=== PATIENT | male | born 1955 | race Caucasian/White ===

== ENCOUNTER 2018-09-02 18:12 | Emergency (ER) | payer OTHER ==
--- OUTSIDE RECORDS SUMMARY | 2018-09-02 18:14 | XMS REPORT ---
:1955 Author Organization [facility] Address [address] [place] [address] Dr. Bustamante. [address] [place] [id number] Care Team Providers Name Role Phone DR SU HERNANDEZ Unavailable Unavailable Problems This patient has no known problems. Allergies, Adverse Reactions, Alerts This patient has no known allergies or adverse reactions. Medications This patient has no known medications. Encounters Start End Encounter Admission Attending Care Care Encounter Date/Time Date/Time Type Type Clinicians Facility Department ID 2017-10-22 2017-10-22 [place] [facility] [id number]:00:00 07:00:00 SU
[2018-09-02] MEDS ORDERED: NA CHLORIDE 0.9% 1,000 ML ONE (18:59)
[2018-09-02] MEDS ORDERED: MORPHINE 4 MG/ML SYR ONE (18:59)
[2018-09-02] MEDS ORDERED: ONDANSETRON 4 MG/2 ML VIAL ONE (18:59)
[2018-09-02 19:01] LABS: Absolute Lymphocytes (CBC) 2.8 K/uL (0.7-4.9); Basophils % 0.8 % (0-1.3); Eosinophils % 3.1 % (0-4.4); Hematocrit 41.1 % (39.6-49.0); Lymphocytes % 40.4 % (15.3-44.8); MPV 8.4 fL (7.6-11.3); Monocytes % 8.1 % (3.3-12.3); RBC Red Blood Cell Count 4.49 M/uL (4.33-5.43)
[2018-09-02 19:15] LABS: Potassium 3.8 mmol/L (3.5-5.1)
--- NOTE | 2018-09-02 19:56 | RAD REPORT ---
EXAM DESCRIPTION: CTAbdomen Pelvis W Contrast - 09/02/2018 7:49 pm CLINICAL HISTORY: Abdominal pain. ABD PAIN COMPARISON: Abdomen Pelvis W Contrast dated 07/14/2018; Abdomen Pelvis W Contrast dated 08/24/2017 ; Abdomen Pelvis W Contrast dated 11/15/2015; CT ABD PELVIS W CONTRAST dated 12/21/2013 TECHNIQUE: Biphasic CT imaging of the abdomen and pelvis was performed with 100 ml non-ionic IV cont rast. All CT scans are performed using dose optimization technique as appropriate and may include automated exposure control or mA/KV adjustment according to patient size. FINDINGS: The lung bases are clear. The liver, spleen, pancreas, adrenal glands and kidneys are within normal limits. Benign bilateral re nal cysts. No bowel obstruction, free air, free fluid or abscess. Mild sigmoid diverticulosis is present without diverticulitis. Prominent fecal retention in the colon. The appendix is normal. No evidence of sign ificant lymphadenopathy. No suspicious bony findings. Small bilateral fat containing inguinal hernias. Evidence of previous ri ght inguinal hernia repair. IMPRESSION: No acute intra-abdominal or pelvic finding. Mild fecal retention.
--- NOTE | 2018-09-02 20:05 | EDPHYS ---
Physician Documentation [facility] Name: Matt Robles Age: 62 yrs Sex: Male : 1955 Arrival Date: 09/02/2018 Time: 18:15 Bed 20 Private MD: Zachary Archer E ED Physician Gadiel Lemos HPI: 09/02 18:49 This 62 yrs old Male presents to ER via Ambulatory with complaints of Groin kb Pain, Abdominal Pain, Nausea. 18:49 The patient presents with abdominal pain in the lower abdomen. Onset: The kb symptoms/episode began/occurred this morning. The symptoms do not radiate. Associated signs and symptoms: Pertinent positives: diarrhea, nausea. The symptoms are described as waxing/waning. Modifying factors: The symptoms are alleviated by nothing, the symptoms are aggravated by nothing. Severity of pain: At its worst the pain was moderate in the emergency department the pain has improved. The patient has experienced similar episodes in the past. The patient has been recently seen by a physician:. Pt reports he is being tested for crohn's. States he gets this lower abd pain and diarrhea, which they have called a crohn's flare-up. Told to start antibiotics when this happens so he started cipro and flagyl on Wednesday. Was seen by Dr Latahm yesterday and told to continue antibiotics. States the pain normally gets better throughout the day when he has it, but today it didn't so that is why he came in. . Historical: - Allergies: 18:28 No Known Allergies; aj1 - Home Meds: 18:28 amitriptyline-chlordiazepoxide 25-10 mg oral tab 1 tab in the evening [Active]; aj1 amlodipine 10 mg tab 1 tab once daily [Active]; metoprolol succinate 50 mg oral Tb24 1 tab once daily [Active]; esomeprazole magnesium 40 mg oral cpDR 1 cap 2 times per day [Active]; Multiple Vitamins oral tab daily [Active]; fenofibrate 150 mg oral cap 1 cap once daily [Active]; alprazolam 0.5 mg Oral Tb24 1 tab as needed [Active]; Fish Oil oral oral daily [Active]; mesalamine oral 1.2 GM oral 2 caps 2 times per day [Active]; cranberry oral oral twice a day [Active]; ranitidine HCl 150 mg Oral tab 1 tab once daily [Active]; Miralax 17 gram Oral pwpk 1 packet as needed [Active]; - PMHx: 18:28 Hernia; Hypertension; GERD; aj1 - PSHx: 18:28 Hernia repair; prostate surgery; aj1 - Immunization history:: Flu vaccine is up to date. - Social history:: Smoking status: Patient/guardian denies using tobacco. - Ebola Screening: : Patient denies travel to an Ebola-affected area in the 21 days before illness onset. ROS: 18:46 Constitutional: Negative for fever, chills, and weight loss, Neck: Negative for injury, kb pain, and swelling, Cardiovascular: Negative for chest pain, palpitations, and edema, Respiratory: Negative for shortness of breath, cough, wheezing, and pleuritic chest pain, Back: Negative for injury and pain, : Negative for injury, bleeding, discharge, and swelling, MS/Extremity: Negative for injury and deformity, Skin: Negative for injury, rash, and discoloration, Neuro: Negative for headache, weakness, numbness, tingling, and seizure. 18:46 Abdomen/GI: Positive for abdominal pain, nausea, diarrhea, Negative for vomiting, constipation, abdominal cramps, abdominal distension, anorexia. Exam: 18:46 Constitutional: This is a well developed, well nourished patient who is awake, alert, kb and in no acute distress. Head/Face: Normocephalic, atraumatic. Neck: Trachea midline, no thyromegaly or masses palpated, and no cervical lymphadenopathy. Supple, full range of motion without nuchal rigidity, or vertebral point tenderness. No Meningismus. Chest/axilla: Normal chest wall appearance and motion. Nontender with no deformity. No lesions are appreciated. Cardiovascular: Regular rate and rhythm with a normal S1 and S2. No gallops, murmurs, or rubs. Normal PMI, no JVD. No pulse deficits. Respiratory: Lungs have equal breath sounds bilaterally, clear to auscultation and percussion. No rales, rhonchi or wheezes noted. No increased work of breathing, no retractions or nasal flaring. Abdomen/GI: Soft, non-tender, with normal bowel sounds. No distension or tympany. No guarding or rebound. No evidence of tenderness throughout. Skin: Warm, dry with normal turgor. Normal color with no rashes, no lesions, and no evidence of cellulitis. MS/ Extremity: Pulses equal, no cyanosis. Neurovascular intact. Full, normal range of motion. Neuro: Awake and alert, GCS 15, oriented to person, place, time, and situation. Cranial nerves II-XII grossly intact. Motor strength 5/5 in all extremities. Sensory grossly intact. Cerebellar exam normal. Normal gait. Vital Signs: 18:28 BP 158 / 83; Pulse 79; Resp 18; Temp 98.0; Pulse Ox 98% on R/A; Weight 102.06 kg (R); aj1 Height 6 ft. 4 in. (193.04 cm) (R); Pain 3/10; 19:30 BP 141 / 75; Pulse 70; Resp 16; Temp 97.6; Pulse Ox 98% ; rr5 20:20 BP 122 / 70; Pulse 75; Resp 17; Temp 97.5; Pulse Ox 99% on R/A; rr5 18:28 Body Mass Index 27.39 (102.06 kg, 193.04 cm) aj1 MDM: 18:31 Patient medically screened. kb 18:48 Data reviewed: vital signs, nurses notes. Data interpreted: Pulse oximetry: on room air kb is 98 %. Interpretation: normal. 20:04 Counseling: I had a detailed discussion with the patient and/or guardian regarding: the kb historical points, exam findings, and any diagnostic results supporting the discharge/admit diagnosis, lab results, radiology results, the need for outpatient follow up, a family practitioner, to return to the emergency department if symptoms worsen or persist or if there are any questions or concerns that arise at home. ED course: Pt feeling better after treatment. Will follow up with Dr Latham. 09/02 18:40 Order name: CBC with Diff; Complete Time: 19:12 kb 09/02 18:40 Order name: Basic Metabolic Panel; Complete Time: 19:22 kb 09/02 18:40 Order name: CT Abd/Pelvis - IV Contrast Only; Complete Time: 19:58 kb 09/02 18:40 Order name: IV Start; Complete Time: 18:56 kb Administered Medications: 18:53 Drug: Zofran 4 mg Route: IVP; Site: right antecubital; tw2 20:00 Follow up: Response: No adverse reaction rr5 18:55 Drug: morphine 4 mg Route: IVP; Site: right antecubital; tw2 20:00 Follow up: Response: No adverse reaction rr5 18:56 Drug: NS 0.9% 1000 ml Route: IV; Rate: 1000 ml; Site: right antecubital; tw2 20:00 Follow up: Response: No adverse reaction; IV Status: Completed infusion; IV Intake: rr5 1000ml Disposition: 09/03 17:58 Co-signature as Attending Physician, Gadiel Lemos MD. Disposition: 09/02/18 20:05 Discharged to Home. Impression: Lower abdominal pain, unspecified. - Condition is Stable. - Discharge Instructions: Abdominal Pain, Adult, [id number]. - Prescriptions for Bentyl 20 mg Oral Tablet - take 1 tablet by ORAL route every 6 hours As needed; 20 tablet. Zofran 4 mg Oral Tablet - take 1 tablet by ORAL route every 6 hours As needed; 20 tablet. - Medication Reconciliation Form, Thank You Letter, Antibiotic Education, Prescription Opioid Use form. - Follow up: Emergency Department; When: As needed; Reason: Worsening of condition. Follow up: Private Physician; When: 2 - 3 days; Reason: Recheck today's complaints, Continuance of care, Re-evaluation by your physician. Signatures: Dispatcher [employer] EDJosefina Israel, CONNIE SMITHP-Kaley Carpenter, RN RN aj1 Autumn Garcia RN RN tw2 Gadiel Lemos MD MD Evan Humphrey RN RN rr5 Corrections: (The following items were deleted from the chart) 09/02 20:35 20:05 09/02/2018 20:05 Discharged to Home. Impression: Lower abdominal pain, rr5 unspecified. Condition is Stable. Forms are Medication Reconciliation Form, Thank You Letter, Antibiotic Education, Prescription Opioid Use. Follow up: Emergency Department; When: As needed; Reason: Worsening of condition. Follow up: Private Physician; When: 2 - 3 days; Reason: Recheck today's complaints, Continuance of care, Re-evaluation by your physician. kb
--- NOTE | 2018-09-02 20:05 | ER ---
Nurse's Notes [facility] Name: Matt Robles Age: 62 yrs Sex: Male : 1955 Arrival Date: 09/02/2018 Time: 18:15 Bed 20 Private MD: Zachary Archer E Diagnosis: Lower abdominal pain, unspecified Presentation: 09/02 18:21 Presenting complaint: Patient states: "I woke up this morning with low abdominal pain aj1 below the navel and in the groin. Through out the day the pain has remained constant. I've been nauseous, and feeling light headed I've had several bowel movements" Patient reports a history of inguinal hernia that has been suspected to cause him pain in the same area, he has also been seeing Dr. Alexis who is trying to figure out if he has Crohns disease. Today is the worst he has felt so he came to the ER for evaluation. Transition of care: patient was not received from another setting of care. Onset of symptoms was September 02, 2018. Risk Assessment: Do you want to hurt yourself or someone else? Patient reports no desire to harm self or others. Initial Sepsis Screen: Does the patient meet any 2 criteria? No. Patient's initial sepsis screen is negative. Does the patient have a suspected source of infection? Yes: Acute abdominal pain. Care prior to arrival: None. 18:21 Method Of Arrival: Ambulatory aj1 18:21 Acuity: ESSENCE 3 aj1 Triage Assessment: 18:28 General: Appears in no apparent distress. uncomfortable, Behavior is calm, cooperative, aj1 appropriate for age. Pain: Complains of pain in left lower quadrant and pelvis Pain currently is 3 out of 10 on a pain scale. Neuro: Level of Consciousness is awake, alert, obeys commands. Cardiovascular: Patient's skin is warm and dry. Respiratory: Airway is patent Respiratory effort is even, unlabored, Respiratory pattern is regular, symmetrical. GI: Reports lower abdominal pain, nausea, Patient currently denies vomiting. Historical: - Allergies: 18:28 No Known Allergies; aj1 - Home Meds: 18:28 amitriptyline-chlordiazepoxide 25-10 mg oral tab 1 tab in the evening [Active]; aj1 amlodipine 10 mg tab 1 tab once daily [Active]; metoprolol succinate 50 mg oral Tb24 1 tab once daily [Active]; esomeprazole magnesium 40 mg oral cpDR 1 cap 2 times per day [Active]; Multiple Vitamins oral tab daily [Active]; fenofibrate 150 mg oral cap 1 cap once daily [Active]; alprazolam 0.5 mg Oral Tb24 1 tab as needed [Active]; Fish Oil oral oral daily [Active]; mesalamine oral 1.2 GM oral 2 caps 2 times per day [Active]; cranberry oral oral twice a day [Active]; ranitidine HCl 150 mg Oral tab 1 tab once daily [Active]; Miralax 17 gram Oral pwpk 1 packet as needed [Active]; - PMHx: 18:28 Hernia; Hypertension; GERD; aj1 - PSHx: 18:28 Hernia repair; prostate surgery; aj1 - Immunization history:: Flu vaccine is up to date. - Social history:: Smoking status: Patient/guardian denies using tobacco. - Ebola Screening: : Patient denies travel to an Ebola-affected area in the 21 days before illness onset. Screenin:29 Abuse screen: Denies threats or abuse. Nutritional screening: No deficits noted. tw2 Tuberculosis screening: No symptoms or risk factors identified. Fall Risk Fall in past 12 months (25 points). Assessment: 18:37 General: Appears in no apparent distress. Behavior is calm, cooperative, appropriate tw2 for age. Pain: Complains of pain in pelvis and left lower quadrant. Neuro: Level of Consciousness is awake, alert, obeys commands, Oriented to person, place, time, situation. Cardiovascular: Heart tones S1 S2 Patient's skin is warm and dry. Respiratory: Airway is patent Respiratory effort is even, unlabored, Respiratory pattern is regular, symmetrical, Breath sounds are clear bilaterally. GI: Bowel sounds present X 4 quads. Abd is soft X 4 quads Reports lower abdominal pain, diarrhea, nausea. : No signs and/or symptoms were reported regarding the genitourinary system. EENT: No signs and/or symptoms were reported regarding the EENT system. Derm: No signs and/or symptoms reported regarding the dermatologic system. Musculoskeletal: Range of motion: intact in all extremities. 19:05 General: Appears in no apparent distress. comfortable, Behavior is calm, cooperative, rr5 appropriate for age. Neuro: Level of Consciousness is awake, alert, obeys commands, Oriented to person, place, time, situation. Cardiovascular: Capillary refill < 3 seconds Patient's skin is warm and dry. Respiratory: Airway is patent Respiratory effort is even, unlabored, Respiratory pattern is regular, symmetrical. GI: Abdomen is flat, Reports lower abdominal pain, diarrhea, nausea. : No signs and/or symptoms were reported regarding the genitourinary system. EENT: No signs and/or symptoms were reported regarding the EENT system. Derm: Skin is intact, Skin temperature is warm. Musculoskeletal: Circulation, motion, and sensation intact. Capillary refill < 3 seconds, Range of motion: intact in all extremities. 19:35 Reassessment: Patient appears in no apparent distress at this time. Patient is alert, rr5 oriented x 3, equal unlabored respirations, skin warm/dry/pink. send to CT scan. 20:20 Reassessment: Patient appears in no apparent distress at this time. Patient is alert, rr5 oriented x 3, equal unlabored respirations, skin warm/dry/pink. discharge instruction given and explained without complaints made. Vital Signs: 18:28 BP 158 / 83; Pulse 79; Resp 18; Temp 98.0; Pulse Ox 98% on R/A; Weight 102.06 kg (R); aj1 Height 6 ft. 4 in. (193.04 cm) (R); Pain 3/10; 19:30 BP 141 / 75; Pulse 70; Resp 16; Temp 97.6; Pulse Ox 98% ; rr5 20:20 BP 122 / 70; Pulse 75; Resp 17; Temp 97.5; Pulse Ox 99% on R/A; rr5 18:28 Body Mass Index 27.39 (102.06 kg, 193.04 cm) aj1 ED Course: 18:15 Patient arrived in ED. rg4 18:15 Zachary Archer MD is Private Physician. rg4 18:23 Triage completed. aj1 18:29 Arm band placed on. tw2 18:31 Autumn Garcia, MABLE is Primary Nurse. tw2 18:31 Josefina Dee FNP-C [facility]. kb 18:31 Gadiel Lemos MD is Attending Physician. kb 18:31 Bed in low position. Call light in reach. Adult w/ patient. tw2 18:42 Radiology exam delayed due to lab results not completed at this time. (BUN/Creatinine). vm2 18:53 Inserted saline lock: 20 gauge in right antecubital area, using aseptic technique. tw2 Blood collected. 18:59 Report given to MABLE Gordon. tw2 19:14 Radiology exam delayed due to lab results not completed at this time. (BUN/Creatinine). vm2 19:49 CT completed. Patient tolerated procedure well. Patient moved to CT via wheelchair. wi Patient moved back from CT. 19:50 CT Abd/Pelvis - IV Contrast Only In Process Unspecified. EDMS 20:20 No provider procedures requiring assistance completed. IV discontinued, intact, rr5 bleeding controlled, No redness/swelling at site. Pressure dressing applied. Administered Medications: 18:53 Drug: Zofran 4 mg Route: IVP; Site: right antecubital; tw2 20:00 Follow up: Response: No adverse reaction rr5 18:55 Drug: morphine 4 mg Route: IVP; Site: right antecubital; tw2 20:00 Follow up: Response: No adverse reaction rr5 18:56 Drug: NS 0.9% 1000 ml Route: IV; Rate: 1000 ml; Site: right antecubital; tw2 20:00 Follow up: Response: No adverse reaction; IV Status: Completed infusion; IV Intake: rr5 1000ml Intake: 20:00 IV: 1000ml; Total: 1000ml. rr5 Outcome: 20:05 Discharge ordered by . kb 20:20 Discharged to home ambulatory, with family. rr5 20:20 Condition: stable 20:20 Discharge instructions given to patient, family, Instructed on discharge instructions, follow up and referral plans. medication usage, Demonstrated understanding of instructions, follow-up care, medications, Prescriptions given X 2. 20:35 Patient left the ED. rr5 Signatures: Dispatcher [employer] EDSD Josefina Dee, GRADUATE TEACHING ASSOCIATE-C GRADUATE TEACHING ASSOCIATE-Kaley Carpenter, RN RN Autumn King RN RN 2 Aggie Pak Nathan nj McGuire, Victoria 2 Evan Humphrey, MABLE RN rr5
[2018-09-02 22:57] VITALS: BP 122/70; TEMP 97.5; O2SAT 99
== END 2018-09-02 20:35 | disposition home or self-care (01) ==
LOC: ER 18:12
DX: R10.30 Lower abdominal pain, unspecified (principal); I10 Essential (primary) hypertension; K21.9 Gastro-esophageal reflux disease without esophagitis
CPT/HCPCS: 36415; 74177; 80048; 85025; 96361; 96374; 96375; 99284; J2405; J7030; Q9967

== ENCOUNTER 2018-09-25 22:48 | Inpatient (IN) | payer OTHER ==
--- OUTSIDE RECORDS SUMMARY | 2018-09-25 22:50 | XMS REPORT ---
:1955 [facility] Address [address] [place] [address] Dr. Bustamante. [address] [place] [id number] Care Team Providers Name Role Phone DR SU HERNANDEZ Unavailable Unavailable Problems This patient has no known problems. Allergies, Adverse Reactions, Alerts This patient has no known allergies or adverse reactions. Medications This patient has no known medications. Encounters Start End Encounter Admission Attending Care Care Encounter Date/Time Date/Time Type Type Clinicians Facility Department ID 2017-10-22 2017-10-22 [place] [facility] [id number]:00:00 07:00:00 SU
[2018-09-25] MEDS ORDERED: METOPROLOL TARTRATE 5 MG/5 ML INJ IV ONE (23:16)
[2018-09-25 23:23] LABS: Absolute Lymphocytes (CBC) 4.3 K/uL (0.7-4.9); Basophils % 1.4 % (0-1.3); Hematocrit 41.1 % (39.6-49.0); Lymphocytes % 49.2 % (15.3-44.8); MPV 8.4 fL (7.6-11.3); RBC Red Blood Cell Count 4.48 M/uL (4.33-5.43)
[2018-09-25 23:28] LABS: Protime INR 0.98
[2018-09-25] MEDS ORDERED: NA CHLORIDE 0.9% 1,000 ML ONE (23:32)
[2018-09-25 23:42] LABS: ALT/SGPT 36 U/L (12-78); AST/SGOT 30 U/L (15-37); Albumin 4.1 g/dL (3.4-5.0); Alkaline Phosphatase 70 U/L (45-117); BUN Blood Urea Nitrogen 13 mg/dL (7-18); Bicarbonate 27 mmol/L (21-32); Bilirubin Direct < 0.1 mg/dL (0-0.2); Bilirubin Total 0.2 mg/dL (0.2-1.0); Glucose Level 105 mg/dL (74-106); NT PRO-BNP 38 pg/mL (<125); Potassium 3.5 mmol/L (3.5-5.1); Protein, Total 7.5 g/dL (6.4-8.2); Sodium Level 141 mmol/L (136-145); Troponin (Emerg Dept Use Only) < 0.02 ng/mL (0.0-0.045)
[2018-09-26] MEDS ORDERED: ENOXAPARIN 100 MG/ML SYR SQ ONE (00:15)
--- NOTE | 2018-09-26 00:30 | ER ---
Nurse's Notes [facility] Name: Matt Robles Age: 62 yrs Sex: Male : 1955 Arrival Date: 09/25/2018 Time: 22:52 Bed 2 Private MD: Diagnosis: Atrial fibrillation and flutter-New onset Presentation: 09/25 23:08 Presenting complaint: Patient states: walking up stairs about 30 minutes when patient ss reports sudden onset of irregular palpitations. Denies CP/ SOB. Transition of care: patient was not received from another setting of care. Onset of symptoms was September 25, 2018. Risk Assessment: Do you want to hurt yourself or someone else? Patient reports no desire to harm self or others. Initial Sepsis Screen: Does the patient meet any 2 criteria? RR > 20 per min. HR > 90 bpm. Does the patient have a suspected source of infection? No. Patient's initial sepsis screen is negative. Care prior to arrival: None. 23:08 Method Of Arrival: Ambulatory ss 23:08 Acuity: ESSENCE 2 ss 23:10 Note Patient self administered 0.5 mg Xanax and 81 mg ASA x 3. ss Triage Assessment: 09/26 01:32 General: Appears uncomfortable. Respiratory: Reports shortness of breath at rest the ak1 patient has moderate shortness of breath. 01:32 Respiratory: Onset: The symptoms/episode began/occurred at an unknown time. ak1 Historical: - Allergies: 09/25 23:10 No Known Allergies; ss - Home Meds: 23:10 amitriptyline-chlordiazepoxide 25-10 mg Oral tab 1 tab in the evening [Active]; ss amlodipine 10 mg tab 1 tab once daily [Active]; metoprolol succinate 50 mg Oral Tb24 1 tab once daily [Active]; esomeprazole magnesium 40 mg Oral cpDR 1 cap 2 times per day [Active]; Multiple Vitamins Oral tab daily [Active]; alprazolam 0.5 mg Oral Tb24 1 tab as needed [Active]; Fish Oil Oral daily [Active]; cranberry Oral twice a day [Active]; ranitidine HCl 150 mg Oral tab 1 tab once daily [Active]; Miralax 17 gram Oral pwpk 1 packet as needed [Active]; fenofibrate 145 Oral cap 1 cap once daily [Active]; - PMHx: 23:10 GERD; Hernia; Hypertension; ss - PSHx: 23:10 Hernia repair; prostate surgery; ss - Immunization history:: Adult Immunizations up to date. - Social history:: Smoking status: Patient/guardian denies using tobacco. - Ebola Screening: : Patient denies exposure to infectious person Patient denies travel to an Ebola-affected area in the 21 days before illness onset. Screenin/12 00:05 Abuse screen: Denies threats or abuse. Denies injuries from another. Nutritional ss screening: No deficits noted. Tuberculosis screening: Never had TB. Fall Risk IV access (20 points). Assessment: 09/25 22:50 General: Appears in no apparent distress. comfortable, Behavior is cooperative, ss anxious, Denies fever, feeling ill, fatigue, chills. Pain: Denies pain. Neuro: Level of Consciousness is awake, alert, obeys commands, Oriented to person, place, time, situation. Cardiovascular: Heart tones S1 S2 present Pulses are palpable in right radial artery and left radial artery Edema is absent. Rhythm is atrial fibrillation with rapid ventricular response. Respiratory: Airway is patent Trachea midline Respiratory effort is even, unlabored, Respiratory pattern is regular, symmetrical, Breath sounds are clear bilaterally. GI: Patient currently denies abdominal pain, diarrhea, nausea, vomiting. : No signs and/or symptoms were reported regarding the genitourinary system. EENT: Nares are clear Oral mucosa is moist. Derm: Skin is intact, is healthy with good turgor, Skin is dry, Skin is pink, warm \T\ dry. normal. Musculoskeletal: Circulation, motion, and sensation intact. Capillary refill < 3 seconds, is brisk, in bilateral fingers. Range of motion: intact in all extremities, Swelling absent. 23:42 Reassessment: Patient appears in no apparent distress at this time. Patient and/or ss family updated on plan of care and expected duration. Pain level reassessed. Patient is alert, oriented x 3, equal unlabored respirations, skin warm/dry/pink. Cardiovascular: Pulses are palpable in right radial artery and left radial artery Rhythm is atrial fibrillation Chest pain is denied. 09/26 00:03 Reassessment: Patient appears in no apparent distress at this time. Patient and/or ss family updated on plan of care and expected duration. Pain level reassessed. Reports fluttering sensation in chest has gone away. Law Kennedy NP updated on patient's status. Reports not to give 3rd dose of Lopressor at this time. Patient denies pain at this time. 00:18 Reassessment: Patient appears in no apparent distress at this time. PAtient and ss updated on admission status. TSH level added onto labs that have been sent. Patient denies pain at this time. 01:33 Reassessment: Patient appears in no apparent distress at this time. Patient and/or ak1 family updated on plan of care and expected duration. Pain level reassessed. Patient is alert, oriented x 3, equal unlabored respirations, skin warm/dry/pink. Patient states feeling better. Patient states symptoms have improved. Vital Signs: 09/25 23:07 BP 141 / 95; Pulse 130; Resp 22; Temp 98.2(TE); Pulse Ox 98% on R/A; Weight 102.06 kg; Height 6 ft. 4 in. (193.04 cm); Pain 0/10; 23:41 BP 117 / 94; Pulse 84; Resp 18; Pulse Ox 99% on R/A; Pain 0/10; ss 09/26 00:01 BP 121 / 78; Pulse 97; Resp 17; Pulse Ox 99% on R/A; Pain 0/10; ss 00:49 BP 131 / 75; Pulse 96; Resp 14; Pulse Ox 100% on R/A; ak1 01:38 BP 131 / 93; Pulse 86; Resp 20; Temp 98.2; Pulse Ox 96% on R/A; ak1 09/25 23:07 Body Mass Index 27.39 (102.06 kg, 193.04 cm) ED Course: 09/25 22:52 Patient arrived in ED. ds1 22:55 Law Kennedy, [id number] is PHCP. pm1 22:55 Gadiel Lemos MD is Attending Physician. pm1 23:07 Arm band placed on right wrist. ss 23:08 Triage completed. ss 23:13 Initial lab(s) drawn, by me, sent to lab. Inserted saline lock: 20 gauge in right lt1 antecubital area, using aseptic technique. 23:18 Ember Ennis RN is Primary Nurse. ss 23:19 X-ray completed. Portable x-ray completed in exam room. Patient tolerated procedure kw well. 23:20 XRAY Chest (1 view) In Process Unspecified. EDOR 08 00:29 Francis Spears MD is Hospitalizing Provider. pm1 00:49 Patient has correct armband on for positive identification. Placed in gown. Bed in low ak1 position. Call light in reach. Side rails up X 1. Adult w/ patient. classroom monitor on. Pulse ox on. NIBP on. 00:50 No provider procedures requiring assistance completed. Patient admitted, IV remains in ak1 place. Administered Medications: 09/25 23:18 Drug: Lopressor 5 mg Route: IVP; Site: right antecubital; 23:41 Drug: Lopressor 5 mg Route: IVP; Site: right antecubital; 09/26 00:12 Follow up: Response: No adverse reaction; No adverse reaction, pulse is lowered. 09/25 23:41 Drug: NS 0.9% 1000 ml Route: IV; Rate: 1000 ml; Site: right antecubital; 09/26 00:50 Follow up: IV Status: Completed infusion; IV Intake: 1000ml ak1 01:32 Follow up: IV Status: Completed infusion; IV Intake: 1000ml ak1 00:18 Drug: Lovenox 1 mg/kg Route: Sub-Q; Site: right lower abdomen; ss 00:33 Follow up: Response: No adverse reaction ss 00:34 Drug: Lopressor 25 mg Route: PO; ss 00:50 Follow up: Response: No adverse reaction ak1 Intake: 00:50 IV: 1000ml; Total: 1000ml. ak1 01:32 IV: 1000ml; Total: 2000ml. ak1 Outcome: 00:29 Decision to Hospitalize by Provider. pm1 01:32 Condition: stable ak1 01:32 Instructed on the need for admit. 02:16 Patient left the ED. ak1 02:16 Admitted to Med/surg accompanied by nurse, family with patient, via wheelchair, room ak1 424, with chart, Report called to Anais AKINS Signatures: Dispatcher [employer] EDOR BryantSally ds1 Ember Ennis RN RN Leena Cleaning Amber RN RN ak1 Law Kennedy, ORDER PACKER ORDER PACKER pm1 Ebonie Arguello lt1
--- NOTE | 2018-09-26 00:31 | EDPHYS ---
Physician Documentation [facility] Name: Matt Robles Age: 62 yrs Sex: Male : 1955 Arrival Date: 09/25/2018 Time: 22:52 Bed 2 Private MD: ED Physician Gadiel Lemos HPI: 09/26 00:22 This 62 yrs old Male presents to ER via Ambulatory with complaints of pm1 Shortness Of Breath. 00:22 The patient has shortness of breath that occurred at home, walking up the stairs. pm1 Onset: The symptoms/episode began/occurred just prior to arrival. Duration: The symptoms are continuous. The patient's shortness of breath is aggravated by exertion, is alleviated by nothing. Associated signs and symptoms: Pertinent positives: chest pain, Pertinent negatives: non-productive cough, diaphoresis, fever, nausea, vomiting. Severity of symptoms: in the emergency department the symptoms are unchanged. The patient has experienced a previous episode, approximately 30 years ago. The patient has not recently seen a physician, Patient of [facility]. Historical: - Allergies: 09/25 23:10 No Known Allergies; ss - Home Meds: 23:10 amitriptyline-chlordiazepoxide 25-10 mg Oral tab 1 tab in the evening [Active]; ss amlodipine 10 mg tab 1 tab once daily [Active]; metoprolol succinate 50 mg Oral Tb24 1 tab once daily [Active]; esomeprazole magnesium 40 mg Oral cpDR 1 cap 2 times per day [Active]; Multiple Vitamins Oral tab daily [Active]; alprazolam 0.5 mg Oral Tb24 1 tab as needed [Active]; Fish Oil Oral daily [Active]; cranberry Oral twice a day [Active]; ranitidine HCl 150 mg Oral tab 1 tab once daily [Active]; Miralax 17 gram Oral pwpk 1 packet as needed [Active]; fenofibrate 145 Oral cap 1 cap once daily [Active]; - PMHx: 23:10 GERD; Hernia; Hypertension; ss - PSHx: 23:10 Hernia repair; prostate surgery; ss - Immunization history:: Adult Immunizations up to date. - Social history:: Smoking status: Patient/guardian denies using tobacco. - Ebola Screening: : Patient denies exposure to infectious person Patient denies travel to an Ebola-affected area in the 21 days before illness onset. ROS: 09/26 00:22 Constitutional: Negative for fever, chills, and weight loss, Eyes: Negative for injury, pm1 pain, redness, and discharge, ENT: Negative for injury, pain, and discharge, Neck: Negative for injury, pain, and swelling. Abdomen/GI: Negative for abdominal pain, nausea, vomiting, diarrhea, and constipation, Back: Negative for injury and pain, : Negative for injury, bleeding, discharge, and swelling, MS/Extremity: Negative for injury and deformity, Skin: Negative for injury, rash, and discoloration, Neuro: Negative for headache, weakness, numbness, tingling, and seizure. Cardiovascular: Positive for chest pain, palpitations, Negative for edema, orthopnea. Respiratory: Positive for shortness of breath, Negative for cough, sputum production, wheezing. Exam: 00:22 Constitutional: This is a well developed, well nourished patient who is awake, alert, pm1 and in no acute distress. Head/Face: Normocephalic, atraumatic. Eyes: Pupils equal round and reactive to light, extra-ocular motions intact. Lids and lashes normal. Conjunctiva and sclera are non-icteric and not injected. Cornea within normal limits. Periorbital areas with no swelling, redness, or edema. Chest/axilla: Normal chest wall appearance and motion. Nontender with no deformity. No lesions are appreciated. 00:22 Respiratory: Lungs have equal breath sounds bilaterally, clear to auscultation and percussion. No rales, rhonchi or wheezes noted. No increased work of breathing, no retractions or nasal flaring. Abdomen/GI: Soft, non-tender, with normal bowel sounds. No distension or tympany. No guarding or rebound. No evidence of tenderness throughout. Back: No spinal tenderness. No costovertebral tenderness. Full range of motion. Skin: Warm, dry with normal turgor. Normal color with no rashes, no lesions, and no evidence of cellulitis. MS/ Extremity: Pulses equal, no cyanosis. Neurovascular intact. Full, normal range of motion. 00:22 Cardiovascular: Rate: tachycardic, Rhythm: irregular, Pulses: no pulse deficits are appreciated, Heart sounds: normal, normal S1and S2, Edema: is not appreciated. 00:22 Neuro: Orientation: is normal, Motor: is normal, moves all fours, Sensation: is normal, no obvious gross deficits. Vital Signs: 09/25 23:07 BP 141 / 95; Pulse 130; Resp 22; Temp 98.2(TE); Pulse Ox 98% on R/A; Weight 102.06 kg; ss Height 6 ft. 4 in. (193.04 cm); Pain 0/10; 23:41 BP 117 / 94; Pulse 84; Resp 18; Pulse Ox 99% on R/A; Pain 0/10; ss 08 00:01 BP 121 / 78; Pulse 97; Resp 17; Pulse Ox 99% on R/A; Pain 0/10; ss 00:49 BP 131 / 75; Pulse 96; Resp 14; Pulse Ox 100% on R/A; ak1 01:38 BP 131 / 93; Pulse 86; Resp 20; Temp 98.2; Pulse Ox 96% on R/A; ak1 09/25 23:07 Body Mass Index 27.39 (102.06 kg, 193.04 cm) ss MDM: 09/25 23:01 Patient medically screened. pm1 09/26 00:26 Data reviewed: vital signs. Data interpreted: Pulse oximetry: on room air is 99 %. pm1 Interpretation: normal. Counseling: I had a detailed discussion with the patient and/or guardian regarding: the historical points, exam findings, and any diagnostic results supporting the discharge/admit diagnosis, lab results, radiology results, the need for further work-up and treatment in the hospital. 00:26 Physician consultation: Francis Spears MD was called at 00:29, was contacted at 00:29, pm1 regarding admission, patient's condition. 09/25 23:01 Order name: Basic Metabolic Panel; Complete Time: 00: pm09/25 23:01 Order name: CBC with Diff; Complete Time: 00: pm09/25 23:01 Order name: LFT's; Complete Time: 00: pm09/25 23:01 Order name: Magnesium; Complete Time: 00:09 pm09/25 23:01 Order name: NT PRO-BNP; Complete Time: 00:09 pm09/25 23:01 Order name: PT-INR; Complete Time: 00:09 pm1 09/25 23:01 Order name: Troponin (emerg Dept Use Only); Complete Time: 00:09 pm1 09/26 00:14 Order name: Add On-Lab 09/26 00:20 Order name: TSH; Complete Time: 01:13 pm1 09/26 00:48 Order name: Magnesium EDMS 09/26 00:48 Order name: T4 Free EDMS 09/26 00:48 Order name: Thyroid Stimulating Hormone EDCA 09/26 00:48 Order name: Lipid Profile EDMS 09/26 00:48 Order name: Troponin I EDMS 09/25 23:01 Order name: XRAY Chest (1 view) pm1 09/25 23:01 Order name: EKG; Complete Time: 23:06 pm1 09/25 23:01 Order name: Cardiac monitoring; Complete Time: 23:11 pm1 09/25 23:01 Order name: EKG - Nurse/Tech; Complete Time: 23:11 pm1 09/25 23:01 Order name: IV Saline Lock; Complete Time: 23:11 pm1 09/25 23:01 Order name: Labs collected and sent; Complete Time: 23:11 pm1 09/26 00:48 Order name: CONS Physician Consult EDMS 09/26 00:48 Order name: Heart Healthy EDMS 09/26 00:48 Order name: Echo with Doppler EDMS 09/26 00:48 Order name: EKG Electrocardiogram EDMS 09/26 00:48 Order name: EKG Electrocardiogram EDMS 09/26 00:49 Order name: CBC with Automated Diff EDCA 09/25 23:01 Order name: O2 Per Protocol; Complete Time: 23:11 pm1 09/25 23:01 Order name: O2 Sat Monitoring; Complete Time: 23:11 pm1 Administered Medications: 09/25 23:18 Drug: Lopressor 5 mg Route: IVP; Site: right antecubital; 23:41 Drug: Lopressor 5 mg Route: IVP; Site: right antecubital; 09/26 00:12 Follow up: Response: No adverse reaction; No adverse reaction, pulse is lowered. 09/25 23:41 Drug: NS 0.9% 1000 ml Route: IV; Rate: 1000 ml; Site: right antecubital; 09/26 00:50 Follow up: IV Status: Completed infusion; IV Intake: 1000ml ak1 01:32 Follow up: IV Status: Completed infusion; IV Intake: 1000ml ak1 00:18 Drug: Lovenox 1 mg/kg Route: Sub-Q; Site: right lower abdomen; 00:33 Follow up: Response: No adverse reaction ss 00:34 Drug: Lopressor 25 mg Route: PO; ss 00:50 Follow up: Response: No adverse reaction ak1 Disposition: 09/26/18 00:29 Hospitalization ordered by Francis Spears for Inpatient Admission. Preliminary diagnosis is Atrial fibrillation and flutter - New onset. - Bed requested for Telemetry/MedSurg (Inpatient). - Status is Inpatient Admission. ak1 - Condition is Stable. - Problem is new. - Symptoms have improved. UTI on Admission? No Addendum: 09/28/2018 03:30 Co-signature as Attending Physician, Gadiel Lemos MD. g s Signatures: Dispatcher [employer] EDCA Ember Ennis RN RN Chelsea Camarena RN RN ak1 Milli Pak RN RN Law Kennedy, LABORER RAGS LABORER RAGS pm1 Gadiel Lemos MD MD Corrections: (The following items were deleted from the chart) 09/26 01:26 00:29 Hospitalization Ordered by Francis Spears MD for Inpatient Admission. Preliminary cg diagnosis is Atrial fibrillation and flutter - New onset. Bed requested for Telemetry/MedSurg (Inpatient). Status is Inpatient Admission. Condition is Stable. Problem is new. Symptoms have improved. UTI on Admission? No. pm1 02:16 01:26 09/26/2018 00:29 Hospitalization Ordered by Francis Spears MD for Inpatient ak1 Admission. Preliminary diagnosis is Atrial fibrillation and flutter - New onset. Bed requested for Telemetry/MedSurg (Inpatient). Status is Inpatient Admission. Condition is Stable. Problem is new. Symptoms have improved. UTI on Admission? No. cg
[2018-09-26] MEDS ORDERED: MORPHINE 4 MG/ML SYR IV PRN (00:33)
[2018-09-26] MEDS ORDERED: ACETAMINOPHEN 500 MG TAB PO PRN (00:33)
[2018-09-26] MEDS ORDERED: ALPRAZOLAM 0.25 MG TABLET PO PRN (00:33)
[2018-09-26] MEDS ORDERED: METOPROLOL TAR 25 MG TAB ONE (00:34)
[2018-09-26 02:34] VITALS: BMI 27.8
[2018-09-26] MEDS ORDERED: METOPROLOL TAR 50 MG TAB PO SCH (06:00)
[2018-09-26 06:28] LABS: Absolute Lymphocytes (CBC) 4.1 K/uL (0.7-4.9); Basophils % 1.1 % (0-1.3); Hematocrit 37.7 % (39.6-49.0); Lymphocytes % 49.3 % (15.3-44.8); MPV 8.6 fL (7.6-11.3); RBC Red Blood Cell Count 4.17 M/uL (4.33-5.43)
[2018-09-26 06:34] LABS: Urine Appearance CLEAR; Urine Bilirubin NEGATIVE (NEG); Urine Blood NEGATIVE (NEG); Urine Color YELLOW; Urine Glucose NEGATIVE (NEG); Urine Protein NEGATIVE (NEG); Urine Specific Gravity <=1.005 (1.005-1.030); Urine Urobilinogen 0.2 mg/dL (0.2-1.0); Urine pH 7.5 (5.0-7.0)
[2018-09-26 06:34] LABS: HDL Cholesterol 43 mg/dL (40-60); LDL Cholesterol, Calculated 85 (<130); Magnesium 2.1 mg/dL (1.8-2.4); Troponin I < 0.02 ng/mL (0.0-0.045)
[2018-09-26 06:38] LABS: Urine Microscopic Reflex NO UMIC
--- NOTE | 2018-09-26 07:36 | EKG ---
Test Date: 2018-09-25 Test Time: 23:08:28 Wharf Hand: SHANIQUE MEASUREMENT RESULTS: Intervals: Rate: 117 [place]: QRSD: 88 QT: 322 QTc: 449 [place]: P: [place]: QRS: 25 T: 36 INTERPRETIVE STATEMENTS: Atrial fibrillation with rapid ventricular response Nonspecific ST abnormality, probably digitalis effect Abnormal ECG Compared to ECG 10/13/2017 13:19:02 ST (T wave) deviation now present Sinus rhythm no longer present Electronically Signed On 09-26-18 07:35:31 CDT by Fernando Mayo
--- NOTE | 2018-09-26 08:13 | RAD REPORT ---
EXAM DESCRIPTION: RAD - Chest Single View - 09/25/2018 11:22 pm CLINICAL HISTORY: SOB;Palpitations Chest pain. COMPARISON: Chest Pa And Lat (2 Views) dated 08/16/2018; Chest Pa And Lat (2 Views) dated 09/07/2017; C HEST SINGLE VIEW dated 11/23/2011; CHEST SINGLE VIEW dated 11/14/2008 FINDINGS: Portable technique limits examination quality. Mild emphysematous changes are present throughout the lungs. The heart is mildly prominent in size. N o displaced fractures. IMPRESSION: Mild COPD.
--- NOTE | 2018-09-26 08:13 | P.HP ---
Certification for Inpatient Patient admitted to: Observation With expected LOS: <2 Midnights Patient will require the following post-hospital care: None Practitioner: I am a practitioner with admitting privileges, knowledge of patient current condition, hospital course, and medical plan of care. Services: Services provided to patient in accordance with Admission requirements found in Title 42 Section 412.3 of the Code of Federal Regulations Patient History Date of Service: 09/26/18 Reason for admission: Atrial fibrillation with rapid ventricular response History of Present Illness: Patient is a 62-year-old gentleman who came into the hospital with atrial fibrillation. Patient has been having palpitations and chest discomfort since this morning. It has been waxing and waning. He finally decided to come into the emergency room for evaluation. In the ER, he was found the be in atrial fibrillation with RVR with a rate in the 120s. The he was started on IV Lopressor. His rate was better controlled. He was given subcutaneous Lovenox. Will get an echocardiogram and a cardiology consultation. Patient did have a stress test a few years ago at the local cardiology office. We will await cardiology review prior to ordering any further diagnostic studies. Allergies No Known Allergies Allergy (Verified 11/23/11 16:25) Home Medications: Alprazolam [Xanax] 0.5 mg PO PRN PRN 11/24/11 Amlodipine Besylate 10 mg PO DAILY 11/24/11 Esomeprazole Magnesium [Nexium] 40 mg PO BID 11/24/11 Fenofibrate Nanocrystallized [Tricor] 145 mg PO DAILY 11/24/11 Metoprolol Succinate 50 mg PO DAILY 11/24/11 Multivitamin [Multi-Vitamin Daily] 1 each PO DAILY 11/24/11 [place]-3 Fatty Acids [Fish Oil] 300 mg PO BEDTIME 03/17/14 Amitrip HCl/Chlordiazepoxide [Limbitrol Tablet] 1 each PO BEDTIME 09/26/18 Cranberry Fruit Extract [Cranberry] 500 mg PO BID 09/26/18 Mesalamine 1.2 gm PO BID 09/26/18 Polyethylene Glycol 3350 [Miralax] 17 gm PO DAILYPRN PRN 09/26/18 Ranitidine [Zantac] 150 mg PO DAILY 09/26/18 - Past Medical/Surgical History Has patient received pneumonia vaccine in the past: No Diabetic: No -: htn -: hyperlipedimia -: repair of lacerated middle left finger -: right inguinal repair -: green light laser surgeryto prostate. - Family History Father Family History: Reviewed- Non-Contributory - Social History Smoking Status: Never smoker Alcohol use: No CD- Drugs: No Caffeine use: Yes Place of Residence: Home Review of Systems 10-point ROS is otherwise unremarkable Physical Examination - Vital Signs Temperature: 98 F Blood Pressure: 110/70 Pulse: 75 Respirations: 16 Pulse Ox (%): 95 - Physical Exam General: Alert, In no apparent distress, Oriented x3 HEENT: Atraumatic, PERRLA, Mucous membr. moist/pink, EOMI, Sclerae nonicteric Neck: Supple, 2+ carotid pulse no bruit, No LAD, Without JVD or thyroid abnormality Respiratory: Clear to auscultation bilaterally, Normal air movement Cardiovascular: Irregular heart rate/rhythm Gastrointestinal: Normal bowel sounds, Soft and benign, Non-distended, No tenderness Musculoskeletal: No clubbing, No swelling, No tenderness Integumentary: No rashes Neurological: Normal gait, Normal speech, Normal strength at 5/5 x4 extr, Normal tone, Sensation intact, Cranial nerves 3-12 intact, Normal affect Lymphatics: No axilla or inguinal lymphadenopathy - Studies Laboratory Data (last 24 hrs) 09/25/18 23:14: PT 11.6, INR 0.98 09/25/18 23:14: WBC 8.8, Hgb 14.0, Hct 41.1, Plt Count 279 09/25/18 23:14: Sodium 141, Potassium 3.5, BUN 13, Creatinine 1.21, Glucose 105 , Magnesium 2.0, Total Bilirubin 0.2, AST 30, ALT 36, Alkaline Phosphatase 70 Assessment & Plan - Problems (Diagnosis) (1) Atrial fibrillation with rapid ventricular response Current Visit: Yes Status: Acute (2) Chest pain Current Visit: No Status: Acute (3) Hyperlipidemia Current Visit: No Status: Chronic (4) Hypertension Current Visit: No Status: Chronic - Plan 1. Serial troponins and EKG 2. Cardiology consultation 3. Echocardiogram 4. Anti-platelet therapy, anti-coagulation, beta-lashaun, statin, and O2 as needed 5. IV morphine for pain 6. Lipid profile 7. GI and DVT prophylaxis Discharge Plan: Home Plan to discharge in: 24 Hours - Advance Directives Does patient have a Living Will: Yes Does patient have a Durable POA for Healthcare: Yes - Code Status/Comfort Care Code Status Assessed: Yes Code Status: Full Code Critical Care: No Time Spent Managing PTS Care (In Minutes): 45
[2018-09-26] MEDS: ASPIRIN EC 81 MG TAB PO SCH (09:20)
--- NOTE | 2018-09-26 10:39 | EKG ---
Test Date: 2018-09-26 Test Time: 10:00:41 It Compliance Manager: MAURICE MEASUREMENT RESULTS: Intervals: Rate: 76 [place]: QRSD: 86 QT: 340 QTc: 382 [place]: P: [place]: QRS: 67 T: 80 INTERPRETIVE STATEMENTS: Atrial fibrillation Abnormal ECG Compared to ECG 09/25/2018 23:08:28 ST (T wave) deviation no longer present Electronically Signed On 09-26-18 10:38:51 CDT by Fernando Mayo
--- NOTE | 2018-09-26 10:41 | ECHO ---
HEIGHT: 6 ft 4 in WEIGHT: 228 lb 8 oz DATE OF STUDY: 09/26/[address]: Francis Spears MD 2-DIMENSIONAL: YES M.MODE: YES DOPPLER: YES COLOR FLOW: YES TDS: PORTABLE: DEFINITY: BUBBLE STUDY: DIAGNOSIS: ATRIAL FIBRILLATION CARDIAC HISTORY: CATHERIZATION: YES SURGERY: NO PROSTHETIC VALVE: NO PACEMAKER: NO MEASUREMENTS (cm) DIASTOLIC (NORMALS) SYSTOLIC (NORMALS) IVSd 1.1 (0.6-1.2) LA Diam 3.2 (1.9-4.0) LVEF 53% LVIDd 3.9 (3.5-5.7) LVIDs 2.9 (2.0-3.5) %FS 27% LVPWd 1.3 (0.6-1.2) Ao Diam 3.2 (2.0-3.7) 2 DIMENSIONAL ASSESSMENT: RIGHT ATRIUM: NORMAL LEFT ATRIUM: NORMAL RIGHT VENTRICLE: NORMAL LEFT VENTRICLE: NORMAL TRICUSPID VALVE: NORMAL MITRAL VALVE: NORMAL PULMONIC VALVE: NORMAL AORTIC VALVE: NORMAL PERICARDIAL EFFUSION: NONE AORTIC ROOT: NORMAL LEFT VENTRICULAR WALL MOTION: NORMAL DOPPLER/COLOR FLOW: NORMAL COMMENTS: NORMAL 2-DIMENSIONAL ECHOCARDIOGRAM WITH DOPPLER. TECHNOLOGIST: TAMMIE ZUNIGA
--- NOTE | 2018-09-26 11:24 | CON ---
Identifying Data: A 62-year-old man. Chief Complaint: Heart racing. Diagnosis: Paroxysmal atrial fibrillation. History Of Present Illness: Mr. Robles says he had atrial fibrillation in 1981. No recurrences since then. He has been on metoprolol, TriCor, aspirin. He does not have diabetes. He does not use tobac co. He has never had myocardial infarction or any vascular disease. Medications: Outpatient medications also include amlodipine, Nexium, fish oil pills, Limbitrol, Zant ac, mesalamine, and cranberry fruit extract. Physical Examination: General: He is 6 feet 4 inches, 228 pounds, body mass index 27.8. HEENT: Normal. Lungs: Clear. Cardiac: Normal. Abdomen: Soft. Extremities: Normal pulses. EKG shows atrial fibrillation. We need to get an EKG today. I would recommend that he start taking Xarelto 20 mg a day at supper and stop taking his metoprolol and start taking Betapace 80 mg twice a day. If he is discharge later today, he can do his echocardiogram and a nuclear stress test as an outpatient if he wishes. Echocardiogram is already scheduled at this point . EDWIGE Voice ID: [id number] Report ID: [id number]
[2018-09-26] MEDS ORDERED: ENOXAPARIN 100 MG/ML SYR SQ SCH (12:00)
[2018-09-26] MEDS: SOTALOL HCL 80 MG TAB PO SCH (17:09)
[2018-09-26] MEDS: RIVAROXABAN 20 MG TABLET PO SCH (17:11)
[2018-09-26] MEDS ORDERED: ALPRAZOLAM 0.5 MG TABLET PO PRN (17:16)
[2018-09-26] MEDS: [UNRECOGNIZED DRUG - OTHER] PO SCH (21:00)
[2018-09-26] MEDS: HOME MED 1 EA UNK (Mesalamine [Mesalamine] 1.2 GM) PO SCH (21:00)
[2018-09-26] MEDS: CHLORDIAZEPOXIDE PO SCH (21:00)
[2018-09-26] MEDS: FENOFIBRATE 160 MG TAB PO SCH (21:24)
[2018-09-26] MEDS: PANTOPRAZOLE 40MG TABLET PO SCH (21:24)
[2018-09-27] MEDS: SOTALOL HCL 80 MG TAB PO SCH ×2 (06:04→17:33)
[2018-09-27] MEDS: HOME MED 1 EA UNK (Mesalamine [Mesalamine] 1.2 GM) PO SCH ×2 (06:48→21:00)
[2018-09-27] MEDS: PANTOPRAZOLE 40MG TABLET PO SCH ×2 (08:02→16:34)
[2018-09-27] MEDS: ASPIRIN EC 81 MG TAB PO SCH (08:02)
[2018-09-27] MEDS: MULTIVITAMIN TAB PO SCH (08:02)
[2018-09-27] MEDS: FENOFIBRATE 160 MG TAB PO SCH (08:03)
[2018-09-27] MEDS: AMLODIPINE 10 MG TAB PO SCH (08:03)
--- NOTE | 2018-09-27 14:49 | P.PN ---
Subjective Date of Service: 09/27/18 Chief Complaint: Atrial fibrillation with rapid ventricular response Patient seen and examined at bedside. chart reviewed and case discussed with nursing staff. Continues to be in A-fib, rate controlled. Improved symptoms. Review of Systems 10-point ROS is otherwise unremarkable Physical Examination - Vital Signs Temperature: 97.6 F Blood Pressure: 117/73 Pulse: 91 Respirations: 18 Pulse Ox (%): 96 - Physical Exam General: Alert, In no apparent distress, Oriented x3 HEENT: Atraumatic, PERRLA, EOMI Neck: Supple, JVD not distended Respiratory: Clear to auscultation bilaterally, Normal air movement Cardiovascular: Normal S1 S2, Irregular heart rate/rhythm Gastrointestinal: Normal bowel sounds, No tenderness Musculoskeletal: No tenderness Integumentary: No rashes Neurological: Normal speech, Normal tone, Normal affect Lymphatics: No axilla or inguinal lymphadenopathy Assessment And Plan - Current Problems (Diagnosis) (1) Atrial fibrillation with rapid ventricular response Current Visit: Yes Status: Acute (2) Anxiety Current Visit: No Status: Chronic (3) Hyperlipidemia Current Visit: No Status: Chronic (4) Hypertension Current Visit: No Status: Chronic - Plan 1. Troponins negative x 3 2. Cardiology consultation, recommendations appreciated 3. Echocardiogram Normal, EF 53% 4. Continue sotalol BID. 5. IV morphine for pain 6. Lipid profile 7. GI and DVT prophylaxis Disposition: Pending 3rd dose of sotalol this evening. Monitor overnight, likely discharge home on sotalol tomorrow. He will require outpatient follow up with cardiology. Discharge Plan: Home Plan to discharge in: 24 Hours
[2018-09-27 16:08] VITALS: O2SAT 95
[2018-09-27] MEDS: RIVAROXABAN 20 MG TABLET PO SCH (16:34)
[2018-09-27] MEDS: CHLORDIAZEPOXIDE PO SCH (20:59)
[2018-09-27] MEDS: [UNRECOGNIZED DRUG - OTHER] PO SCH (20:59)
--- NOTE | 2018-09-27 22:46 | PN ---
Date of Progress Note: 09/27/2018 The patient was admitted on 09/26/2018 with new onset atrial fibrillation that is at least 48 hours o ld. He had a normal echocardiogram. He started sotalol 80 mg b.i.d., has received 2 dosages so far. He remains in atrial fibrillation with rate controlled. He is also on Xarelto. I would wait until he gets the third dose. His QT is not prolonged. He can go home today and we will see him in the o ffice soon. I will set him up for a cardioversion in the next 2-3 weeks. DOMINIC/DUSTIN Voice ID: [id number] Report ID: [id number]
[2018-09-28] MEDS: SOTALOL HCL 80 MG TAB PO SCH (05:28)
[2018-09-28] MEDS: HOME MED 1 EA UNK (Mesalamine [Mesalamine] 1.2 GM) PO SCH (09:00)
[2018-09-28] MEDS: PANTOPRAZOLE 40MG TABLET PO SCH (09:26)
[2018-09-28] MEDS: ASPIRIN EC 81 MG TAB PO SCH (09:27)
[2018-09-28] MEDS: AMLODIPINE 10 MG TAB PO SCH (09:27)
[2018-09-28] MEDS: FENOFIBRATE 160 MG TAB PO SCH (09:27)
[2018-09-28] MEDS: MULTIVITAMIN TAB PO SCH (09:27)
[2018-09-28 09:28] VITALS: BP 126/75; TEMP 97.9
--- NOTE | 2018-09-28 11:53 | P.DS ---
Admission Date: 09/27/18 Discharge Date: 09/28/18 Disposition: ROUTINE DISCHARGE Discharge Condition: GOOD Reason for Admission: Atrial fibrillation with rapid ventricular response Consultations: Cardiology - Problems (1) Atrial fibrillation with rapid ventricular response Current Visit: Yes Status: Acute (2) Anxiety Current Visit: No Status: Chronic (3) Hyperlipidemia Current Visit: No Status: Chronic (4) Hypertension Current Visit: No Status: Chronic Brief History of Present Illness: Patient is a 62-year-old gentleman who came into the hospital with atrial fibrillation. Patient has been having palpitations and chest discomfort since this morning. It has been waxing and waning. He finally decided to come into the emergency room for evaluation. In the ER, he was found the be in atrial fibrillation with RVR with a rate in the 120s. The he was started on IV Lopressor. His rate was better controlled. He was given subcutaneous Lovenox. Will get an echocardiogram and a cardiology consultation. Patient did have a stress test a few years ago at the local cardiology office. We will await cardiology review prior to ordering any further diagnostic studies. Hospital Course: Patient was admitted for factor fibrillation, new onset. His troponins remained negative x3. Cardiology was consulted. He was started on sotalol, he did receive 3 doses of sotalol in the hospital. She tolerated it well. His rate was controlled, though he continued to be in atrial fibrillation. Echocardiogram was normal with ejection fraction of 53%. Per cardiology, they would like to see him in clinic in 2-3 weeks. If at that time he continues to min atrial fibrillation, they will consider cardioversion in the clinic. He was then cleared by Cardiology for discharge. He otherwise remained stable throughout the stay. He does have a history of anxiety, therefore he did have a lot of questions. Does discussed extensively with patient and at bedside. All questions were extensively answered. His diagnosis and treatment plan were explained to him in detail. The patient verbalized understanding to all the questions. He was then discharged home in a safe and stable manner with recommendations to follow up outpatient with Cardiology. He was discharged on sotalol and Xarelto. Vital Signs/Physical Exam: Temp Pulse Resp BP Pulse Ox 97.9 F 87 14 126/75 95 09/28/18 08:00 09/28/18 09:27 09/28/18 08:00 09/28/18 09:27 09/28/18 08:00 General: Alert, In no apparent distress, Oriented x3 HEENT: Atraumatic, PERRLA, EOMI Neck: Supple, JVD not distended Respiratory: Clear to auscultation bilaterally, Normal air movement Cardiovascular: Normal S1 S2, Irregular heart rate/rhythm (Rate controlled, irregular rhythm) Gastrointestinal: Normal bowel sounds, No tenderness Musculoskeletal: No tenderness Integumentary: No rashes Neurological: Normal speech, Normal tone, Normal affect Lymphatics: No axilla or inguinal lymphadenopathy Laboratory Data at Discharge: WBC 8.4 K/uL (4.3-10.9) 09/26/18 05:52 Hgb 13.2 g/dL (13.6-17.9) L 09/26/18 05:52 Hct 37.7 % (39.6-49.0) L 09/26/18 05:52 Plt Count 285 K/uL (152-406) 09/26/18 05:52 PT 11.6 SECONDS (9.5-12.5) 09/25/18 23:14 INR 0.98 09/25/18 23:14 Sodium 141 mmol/L (136-145) 09/25/18 23:14 Potassium 3.5 mmol/L (3.5-5.1) 09/25/18 23:14 BUN 13 mg/dL (7-18) 09/25/18 23:14 Creatinine 1.21 mg/dL (0.55-1.3) 09/25/18 23:14 Glucose 105 mg/dL (74-106) 09/25/18 23:14 Magnesium 2.1 mg/dL (1.8-2.4) 09/26/18 05:52 Total Bilirubin 0.2 mg/dL (0.2-1.0) 09/25/18 23:14 AST 30 U/L (15-37) 09/25/18 23:14 ALT 36 U/L (12-78) 09/25/18 23:14 Alkaline Phosphatase 70 U/L (45-117) 09/25/18 23:14 Troponin I < 0.02 ng/mL (0.0-0.045) 09/27/18 06:04 Triglycerides 225 mg/dL (<150) H 09/26/18 05:52 Cholesterol 173 mg/dL (<200) 09/26/18 05:52 HDL Cholesterol 43 mg/dL (40-60) 09/26/18 05:52 Cholesterol/HDL Ratio 4.02 09/26/18 05:52 Home Medications: Alprazolam [Xanax] 0.5 mg PO PRN PRN 11/24/11 Amlodipine Besylate 10 mg PO DAILY 11/24/11 Esomeprazole Magnesium [Nexium] 40 mg PO BID 11/24/11 Fenofibrate Nanocrystallized [Tricor] 145 mg PO DAILY 11/24/11 Multivitamin [Multi-Vitamin Daily] 1 each PO DAILY 11/24/11 [place]-3 Fatty Acids [Fish Oil] 300 mg PO BEDTIME 03/17/14 Amitrip HCl/Chlordiazepoxide [Limbitrol Tablet] 1 each PO BEDTIME 09/26/18 Cranberry Fruit Extract [Cranberry] 500 mg PO BID 09/26/18 Mesalamine 1.2 gm PO BID 09/26/18 Polyethylene Glycol 3350 [Miralax] 17 gm PO DAILYPRN PRN 09/26/18 Ranitidine [Zantac*] 150 mg PO DAILY 09/26/18 Rivaroxaban [Xarelto] 20 mg PO DAILY #90 tablet 09/28/18 Sotalol HCl [Betapace*] 80 mg PO BID 6AM 6PM 60 Days tab 09/28/18 New Medications: Rivaroxaban [Xarelto] 20 mg PO DAILY #90 tablet Sotalol HCl [Betapace*] 80 mg PO BID 6AM 6PM 60 Days tab Patient Discharge Instructions: Follow up with the primary care physician in 2- 3 days. Please follow up with cardiology in 1-2 weeks. Information provided to you. Please return to the emergency room for worsening symptoms. Diet: AHA Activity: Ad loyd Followup: Zachary Archer MD [ACTIVE - CAN ADMIT] - Baldev Almeida MD [ACTIVE - CAN ADMIT] - 1-2 Weeks Time spent managing pt's care (in minutes): 65
== END 2018-09-28 13:21 | disposition home or self-care (01) | DRG 310 ==
LOC: ER 22:48 → ERHOLD 09-26 01:07 → 4TH 09-26 01:59 → OBSVTOIN 09-27 14:51
PROVIDERS: ADMIT Hospitalist; ATTEND Family Medicine
DX: I48.0 Paroxysmal atrial fibrillation (principal); E78.5 Hyperlipidemia, unspecified; I10 Essential (primary) hypertension; F41.9 Anxiety disorder, unspecified
CPT/HCPCS: 36415; 71045; 80048; 80061; 80076; 81003; 83735; 83880; 84439; 84443; 84484; 85025; 85610; 93005; 93306; 96361; 96372; 96374; 99285; G0378; J1650; J7030

== ENCOUNTER 2018-10-07 15:23 | Emergency (ER) | payer OTHER ==
--- OUTSIDE RECORDS SUMMARY | 2018-10-07 15:26 | XMS REPORT ---
:1955 [facility] Address [address] [place] [address] Dr. Bustamante. [address] [place] [id number] Care Team Providers Name Role Phone DR SU HERNANDEZ Unavailable Unavailable Problems This patient has no known problems. Allergies, Adverse Reactions, Alerts This patient has no known allergies or adverse reactions. Medications This patient has no known medications. Encounters Start End Encounter Admission Attending Care Care Encounter Date/Time Date/Time Type Type Clinicians Facility Department ID 2017-10-22 2017-10-22 Outpatient JIMMY KUMAR [facility] [id number] 04:00:00 07:00:00 SU
[2018-10-07 15:40] LABS: Absolute Lymphocytes (CBC) 3.1 K/uL (0.7-4.9); Basophils % 1.4 % (0-1.3); Lymphocytes % 41.1 % (15.3-44.8); MPV 9.2 fL (7.6-11.3); RBC Red Blood Cell Count 4.31 M/uL (4.33-5.43)
[2018-10-07] MEDS ORDERED: NA CHLORIDE 0.9% 1,000 ML ONE (15:44)
[2018-10-07] MEDS ORDERED: METOPROLOL TARTRATE 5 MG/5 ML INJ IV ONE ×3 (15:44→17:05)
[2018-10-07 15:53] LABS: Protime INR 1.35
[2018-10-07 16:17] LABS: ALT/SGPT 30 U/L (12-78); AST/SGOT 25 U/L (15-37); Albumin 3.6 g/dL (3.4-5.0); Alkaline Phosphatase 50 U/L (45-117); BUN Blood Urea Nitrogen 15 mg/dL (7-18); Bicarbonate 22 mmol/L (21-32); Bilirubin Direct 0.1 mg/dL (0-0.2); Bilirubin Total 0.4 mg/dL (0.2-1.0); Glucose Level 126 mg/dL (74-106); NT PRO-BNP 939 pg/mL (<125); Potassium 4.1 mmol/L (3.5-5.1); Protein, Total 6.9 g/dL (6.4-8.2); Sodium Level 142 mmol/L (136-145); Troponin (Emerg Dept Use Only) < 0.02 ng/mL (0.0-0.045)
--- NOTE | 2018-10-07 16:17 | RAD REPORT ---
EXAM DESCRIPTION: RAD - Chest Single View - 10/07/2018 4:01 pm CLINICAL HISTORY: Chest pain COMPARISON: September 25, 2018 TECHNIQUE: AP portable chest image was obtained 1554 hours . FINDINGS: Lungs are clear. Heart and vasculature are normal. No measurable pleural effusion and no p neumothorax. No acute bony abnormality seen. No acute aortic findings suspected. IMPRESSION: No acute cardiopulmonary process. No significant interval change.
[2018-10-07] MEDS ORDERED: SOTALOL HCL 80 MG TAB ONE (18:01)
--- NOTE | 2018-10-07 18:35 | ER ---
Nurse's Notes [facility] Name: Matt Robles Age: 63 yrs Sex: Male : 1955 Arrival Date: 10/07/2018 Time: 15:24 Bed 25 Private MD: Diagnosis: Atrial fibrillation and flutter;Chest pain, unspecified Presentation: 10/07 15:34 Presenting complaint: Patient states: I AM RECENTLY DIAGNOSED WITH ATRIAL FIB. I AM ON rv XARELTO AND BETAPACE. I HAVE CHEST PRESSURE AT AROUND 3PM. DENIES PALPITATION AND N/V. Transition of care: patient was not received from another setting of care. Onset of symptoms was October 07, 2018 at 15:00. Risk Assessment: Do you want to hurt yourself or someone else? Patient reports no desire to harm self or others. Initial Sepsis Screen: Does the patient meet any 2 criteria? No. Patient's initial sepsis screen is negative. Does the patient have a suspected source of infection? No. Patient's initial sepsis screen is negative. Care prior to arrival: None. 15:34 Method Of Arrival: Ambulatory rv 15:34 Acuity: ESSENCE 3 rv Historical: - Allergies: 15:39 No Known Allergies; rv - Home Meds: 15:39 alprazolam 0.5 mg Oral Tb24 1 tab as needed [Active]; amitriptyline-chlordiazepoxide rv 25-10 mg Oral tab 1 tab in the evening [Active]; amlodipine 10 mg tab 1 tab once daily [Active]; cranberry Oral twice a day [Active]; esomeprazole magnesium 40 mg Oral cpDR 1 cap 2 times per day [Active]; fenofibrate 145 Oral cap 1 cap once daily [Active]; Fish Oil Oral daily [Active]; mesalamine 1.2 gm Oral 2 caps 2 times per day [Active]; metoprolol succinate 50 mg Oral Tb24 1 tab once daily [Active]; Miralax 17 gram Oral pwpk 1 packet as needed [Active]; Multiple Vitamins Oral tab daily [Active]; ranitidine HCl 150 mg Oral tab 1 tab once daily [Active]; Betapace 80 mg oral tab 1 tab 3 times per day [Active]; Xarelto 20 mg oral tab 1 tab once daily [Active]; - PMHx: 15:39 GERD; Hernia; Hypertension; Atrial Fib; rv - PSHx: 15:39 TOE SURGERY; RIGHT INGUINAL HERNIA REPAIR; PROSTATE PROCEDURE; Tonsillectomy; rv - Immunization history:: Adult Immunizations up to date. - Social history:: Smoking status: Patient/guardian denies using tobacco, never smoked. - Ebola Screening: : No symptoms or risks identified at this time. Screenin:40 Abuse screen: Denies threats or abuse. Denies injuries from another. Nutritional mg2 screening: No deficits noted. Tuberculosis screening: No symptoms or risk factors identified. Fall Risk IV access (20 points). Assessment: 15:40 General: Appears in no apparent distress. comfortable, Behavior is calm, cooperative. rv Pain: Complains of pain in chest. Pain: Pain radiates to BOTH SHOULDERS Pain began suddenly, 30 min ago. Neuro: Level of Consciousness is awake, alert, obeys commands, Oriented to person, place, time, situation. Cardiovascular: Patient's skin is warm and dry. Rhythm is atrial fibrillation with rapid ventricular response. Respiratory: Airway is patent. GI: No signs and/or symptoms were reported involving the gastrointestinal system. : No signs and/or symptoms were reported regarding the genitourinary system. EENT: No signs and/or symptoms were reported regarding the EENT system. Derm: Skin is intact. Vital Signs: 15:35 BP 133 / 84; Pulse 126; Resp 12; Temp 98; Pulse Ox 96% on R/A; mg2 15:45 BP 107 / 60; Pulse 122; Resp 18; Pulse Ox 100% on R/A; mg2 16:10 BP 110 / 79; Pulse 102; Resp 18; Pulse Ox 100% on R/A; mg2 17:11 BP 109 / 67; Pulse 112; Resp 18; Pulse Ox 100% on R/A; mg2 18:07 BP 102 / 60; Pulse 102; Resp 18; Pulse Ox 100% on R/A; mg2 ED Course: 15:24 Patient arrived in ED. as 15:27 Law Kennedy NP is PHCP. pm1 15:27 Giuliano Christy MD is Attending Physician. pm1 15:27 Kenan Hudson RN is Primary Nurse. mg2 15:35 Triage completed. rv 15:40 Arm band placed on. mg2 15:40 No provider procedures requiring assistance completed. Inserted saline lock: 20 gauge mg2 in left forearm, using aseptic technique. Blood collected. Patient maintains SpO2 saturation greater than 95% on room air. 15:41 Patient has correct armband on for positive identification. panel monitor on. Pulse mg2 ox on. NIBP on. 16:01 X-ray completed. Portable x-ray completed in exam room. Patient tolerated procedure mh1 well. 16:01 XRAY Chest (1 view) In Process Unspecified. EDMS 18:27 Baldev Almeida MD is Referral Physician. pm1 18:40 IV discontinued, intact, bleeding controlled, No redness/swelling at site. Pressure mg2 dressing applied. Administered Medications: 15:50 Drug: Lopressor 5 mg Route: IVP; Site: left forearm; mg2 15:50 Drug: NS 0.9% 1000 ml Route: IV; Rate: 1000 ml; Site: left forearm; mg2 17:10 Follow up: Response: No adverse reaction; IV Status: Completed infusion; IV Intake: mg2 1000ml 16:13 Drug: Lopressor 5 mg Route: IVP; Site: left antecubital; mg2 17:10 Drug: Lopressor 5 mg Route: IVP; Site: left forearm; mg2 18:02 Follow up: Response: No adverse reaction; Blood pressure is lowered; hr decreased mg2 18:07 Drug: Betapace 80 mg Route: PO; mg2 18:31 Follow up: Response: No adverse reaction mg2 18:36 Drug: Xarelto 20 mg Route: PO; mg2 18:36 Follow up: Response: No adverse reaction; Medication administered at discharge. mg2 Intake: 17:10 IV: 1000ml; Total: 1000ml. mg2 Outcome: 18:26 Discharge ordered by . pm1 18:40 Discharged to home ambulatory, with family. mg2 18:40 Discharge instructions given to patient, family, Instructed on discharge instructions, follow up and referral plans. Demonstrated understanding of instructions, follow-up care. 18:40 Condition: good mg2 18:52 Patient left the ED. mg2 Signatures: Dispatcher [employer] EDOR Kira Martines 1 Pam Cisneros Patrick, FINAL CANOE INSPECTOR FINAL CANOE INSPECTOR pm1 Kenan Hudson, MABLE RN mg2 Mane Rebolledo RN RN rv Corrections: (The following items were deleted from the chart) 15:39 15:35 BP 133 / 84; Pulse 126bpm; Resp 12bpm; Pulse Ox 96% RA; rv mg2
--- NOTE | 2018-10-07 18:36 | EDPHYS ---
Physician Documentation [facility] Name: Matt Robles Age: 63 yrs Sex: Male : 1955 Arrival Date: 10/07/2018 Time: 15:24 Bed 25 Private MD: ED Physician Giuliano Christy HPI: 10/07 15:48 This 63 yrs old Male presents to ER via Ambulatory with complaints of Chest pm1 Pain, AFib. 15:48 The patient or guardian reports chest pain that is located primarily in the mid-sternal pm1 area. Onset: at 15:00. The pain does not radiate. Associated signs and symptoms: Pertinent negatives: abdominal pain, cough, nausea, palpitations, shortness of breath, vomiting. The chest pain is described as a pressure. Duration: The patient or guardian reports a single episode, that is now resolved. Modifying factors: The symptoms are alleviated by nothing. the symptoms are aggravated by nothing. Severity of pain: in the emergency department the pain has resolved. The patient has been recently been admitted at [facility], was discharged a couple of weeks ago, has appointment with Dr. Casey for cardioversion on Wednesday. Historical: - Allergies: 15:39 No Known Allergies; rv - Home Meds: 15:39 alprazolam 0.5 mg Oral Tb24 1 tab as needed [Active]; amitriptyline-chlordiazepoxide rv 25-10 mg Oral tab 1 tab in the evening [Active]; amlodipine 10 mg tab 1 tab once daily [Active]; cranberry Oral twice a day [Active]; esomeprazole magnesium 40 mg Oral cpDR 1 cap 2 times per day [Active]; fenofibrate 145 Oral cap 1 cap once daily [Active]; Fish Oil Oral daily [Active]; mesalamine 1.2 gm Oral 2 caps 2 times per day [Active]; metoprolol succinate 50 mg Oral Tb24 1 tab once daily [Active]; Miralax 17 gram Oral pwpk 1 packet as needed [Active]; Multiple Vitamins Oral tab daily [Active]; ranitidine HCl 150 mg Oral tab 1 tab once daily [Active]; Betapace 80 mg oral tab 1 tab 3 times per day [Active]; Xarelto 20 mg oral tab 1 tab once daily [Active]; - PMHx: 15:39 GERD; Hernia; Hypertension; Atrial Fib; rv - PSHx: 15:39 TOE SURGERY; RIGHT INGUINAL HERNIA REPAIR; PROSTATE PROCEDURE; Tonsillectomy; rv - Immunization history:: Adult Immunizations up to date. - Social history:: Smoking status: Patient/guardian denies using tobacco, never smoked. - Ebola Screening: : No symptoms or risks identified at this time. ROS: 16:00 Constitutional: Negative for fever, chills, and weight loss, Eyes: Negative for injury, pm1 pain, redness, and discharge, ENT: Negative for injury, pain, and discharge, Neck: Negative for injury, pain, and swelling. 16:00 Respiratory: Negative for shortness of breath, cough, wheezing, and pleuritic chest pain, Abdomen/GI: Negative for abdominal pain, nausea, vomiting, diarrhea, and constipation, Back: Negative for injury and pain, : Negative for injury, bleeding, discharge, and swelling, MS/Extremity: Negative for injury and deformity, Skin: Negative for injury, rash, and discoloration, Neuro: Negative for headache, weakness, numbness, tingling, and seizure. 16:00 Cardiovascular: Positive for chest pain, Negative for edema, orthopnea, palpitations. Exam: 16:00 Constitutional: This is a well developed, well nourished patient who is awake, alert, pm1 and in no acute distress. Head/Face: Normocephalic, atraumatic. Eyes: Pupils equal round and reactive to light, extra-ocular motions intact. Lids and lashes normal. Conjunctiva and sclera are non-icteric and not injected. Cornea within normal limits. Periorbital areas with no swelling, redness, or edema. ENT: Nares patent. No nasal discharge, no septal abnormalities noted. Tympanic membranes are normal and external auditory canals are clear. Oropharynx with no redness, swelling, or masses, exudates, or evidence of obstruction, uvula midline. Mucous membranes moist. Neck: Trachea midline, no thyromegaly or masses palpated, and no cervical lymphadenopathy. Supple, full range of motion without nuchal rigidity, or vertebral point tenderness. No Meningismus. Chest/axilla: Normal chest wall appearance and motion. Nontender with no deformity. No lesions are appreciated. Cardiovascular: Regular rate and rhythm with a normal S1 and S2. No gallops, murmurs, or rubs. Normal PMI, no JVD. No pulse deficits. Respiratory: Lungs have equal breath sounds bilaterally, clear to auscultation and percussion. No rales, rhonchi or wheezes noted. No increased work of breathing, no retractions or nasal flaring. Abdomen/GI: Soft, non-tender, with normal bowel sounds. No distension or tympany. No guarding or rebound. No evidence of tenderness throughout. Back: No spinal tenderness. No costovertebral tenderness. Full range of motion. Skin: Warm, dry with normal turgor. Normal color with no rashes, no lesions, and no evidence of cellulitis. MS/ Extremity: Pulses equal, no cyanosis. Neurovascular intact. Full, normal range of motion. 16:00 Neuro: Orientation: is normal, Mentation: is normal, Motor: moves all fours, strength is normal, strength is 5/5 in all extremities. Vital Signs: 15:35 BP 133 / 84; Pulse 126; Resp 12; Temp 98; Pulse Ox 96% on R/A; mg2 15:45 BP 107 / 60; Pulse 122; Resp 18; Pulse Ox 100% on R/A; mg2 16:10 BP 110 / 79; Pulse 102; Resp 18; Pulse Ox 100% on R/A; mg2 17:11 BP 109 / 67; Pulse 112; Resp 18; Pulse Ox 100% on R/A; mg2 18:07 BP 102 / 60; Pulse 102; Resp 18; Pulse Ox 100% on R/A; mg2 MDM: 15:28 Patient medically screened. [facility] 17:35 Data reviewed: vital signs. Data interpreted: Pulse oximetry: on room air is 100 %. pm1 Interpretation: normal. 18:25 Counseling: I had a detailed discussion with the patient and/or guardian regarding: the pm1 historical points, exam findings, and any diagnostic results supporting the discharge/admit diagnosis, lab results, radiology results, the need for outpatient follow up, for definitive care, a cook roast, to return to the emergency department if symptoms worsen or persist or if there are any questions or concerns that arise at home. 10/07 15:28 Order name: Basic Metabolic Panel; Complete Time: 16:25 mg2 10/07 15:28 Order name: CBC with Diff; Complete Time: 16:03 mg2 10/07 15:28 Order name: LFT's; Complete Time: 16:25 mg2 10/07 15:28 Order name: Magnesium; Complete Time: 16: mg2 10/07 15:28 Order name: NT PRO-BNP; Complete Time: 16:25 mg2 10/07 15:28 Order name: PT-INR; Complete Time: 16:25 mg2 10/07 15:28 Order name: Troponin (emerg Dept Use Only); Complete Time: 16: mg2 10/07 15:28 Order name: XRAY Chest (1 view); Complete Time: 16:25 mg2 10/07 15:28 Order name: EKG; Complete Time: 15:30 mg2 10/07 15:28 Order name: Cardiac monitoring; Complete Time: 15:36 mg2 10/07 15:28 Order name: EKG - Nurse/Tech; Complete Time: 15:36 mg2 10/07 15:28 Order name: IV Saline Lock; Complete Time: 15:36 mg2 10/07 15:28 Order name: Labs collected and sent; Complete Time: 15:36 mg2 10/07 15:28 Order name: O2 Per Protocol; Complete Time: 15:36 mg2 10/07 15:28 Order name: O2 Sat Monitoring; Complete Time: 15:37 mg2 EC:31 Rate is 119 beats/min. Rhythm is regular, A fib with No ectopy. No Q waves. T waves are pm1 Normal. No ST changes noted. Clinical impression: Atrial Fibrillation. Administered Medications: 15:50 Drug: Lopressor 5 mg Route: IVP; Site: left forearm; mg2 15:50 Drug: NS 0.9% 1000 ml Route: IV; Rate: 1000 ml; Site: left forearm; mg2 17:10 Follow up: Response: No adverse reaction; IV Status: Completed infusion; IV Intake: mg2 1000ml 16:13 Drug: Lopressor 5 mg Route: IVP; Site: left antecubital; mg2 17:10 Drug: Lopressor 5 mg Route: IVP; Site: left forearm; mg2 18:02 Follow up: Response: No adverse reaction; Blood pressure is lowered; hr decreased mg2 18:07 Drug: Betapace 80 mg Route: PO; mg2 18:31 Follow up: Response: No adverse reaction mg2 18:36 Drug: Xarelto 20 mg Route: PO; mg2 18:36 Follow up: Response: No adverse reaction; Medication administered at discharge. mg2 Disposition: 10/08 09:16 Co-signature as Attending Physician, Giuliano Christy MD I agree with the assessment and [facility] plan of care. Disposition: 10/07/18 18:26 Discharged to Home. Impression: Atrial fibrillation and flutter, Chest pain, unspecified. - Condition is Stable. - Discharge Instructions: Atrial Fibrillation, Nonspecific Chest Pain. - Medication Reconciliation Form, Thank You Letter, Antibiotic Education, Prescription Opioid Use form. - Follow up: Emergency Department; When: As needed; Reason: Worsening of condition. Follow up: Private Physician; When: 2 - 3 days; Reason: Recheck today's complaints, Continuance of care, Re-evaluation by your physician. Follow up: Baldev Almeida MD; When: 2 - 3 days; Reason: Recheck today's complaints, Continuance of care, Re-evaluation by your physician. - Problem is new. - Symptoms have improved. Signatures: Dispatcher [employer] EDMS Giuliano Christy MD MD cha Marinas, Patrick, POSTULANT POSTULANT pm1 Kenan Hudson, MABLE RN mg2 Mane Rebolledo RN RN rv Corrections: (The following items were deleted from the chart) 10/07 18:27 18:26 10/07/2018 18:26 Discharged to Home. Impression: Atrial fibrillation and flutter; pm1 Chest pain, unspecified. Condition is Stable. Forms are Medication Reconciliation Form, Thank You Letter, Antibiotic Education, Prescription Opioid Use. Follow up: Emergency Department; When: As needed; Reason: Worsening of condition. Follow up: Private Physician; When: 2 - 3 days; Reason: Recheck today's complaints, Continuance of care, Re-evaluation by your physician. Problem is new. Symptoms have improved. pm1 18:52 18:27 10/07/2018 18:26 Discharged to Home. Impression: Atrial fibrillation and flutter; mg2 Chest pain, unspecified. Condition is Stable. Discharge Instructions: Atrial Fibrillation, Nonspecific Chest Pain. Forms are Medication Reconciliation Form, Thank You Letter, Antibiotic Education, Prescription Opioid Use. Follow up: Emergency Department; When: As needed; Reason: Worsening of condition. Follow up: Private Physician; When: 2 - 3 days; Reason: Recheck today's complaints, Continuance of care, Re-evaluation by your physician. Follow up: Baldev Almeida; When: 2 - 3 days; Reason: Recheck today's complaints, Continuance of care, Re-evaluation by your physician. Problem is new. Symptoms have improved. pm1
[2018-10-07] MEDS ORDERED: RIVAROXABAN 20 MG TABLET PO ONE (19:00)
[2018-10-07 21:06] VITALS: TEMP 98
[2018-10-07 21:07] VITALS: O2SAT 100
[2018-10-07 21:12] VITALS: BP 102/60
--- NOTE | 2018-10-08 15:51 | EKG ---
Test Date: 2018-10-07 Test Time: 15:30:41 Gill Box Operator: MAURICE MEASUREMENT RESULTS: Intervals: Rate: 119 [place]: QRSD: 92 QT: 326 QTc: 458 [place]: P: [place]: QRS: 80 T: 18 INTERPRETIVE STATEMENTS: Atrial fibrillation with rapid ventricular response Abnormal ECG Compared to ECG 09/26/2018 10:00:41 No significant changes Electronically Signed On 10-08-18 15:50:26 CDT by Fernando Mayo
== END 2018-10-07 18:52 | disposition home or self-care (01) ==
LOC: ER 15:23
DX: I48.91 Unspecified atrial fibrillation (principal); I48.92 Unspecified atrial flutter; K21.9 Gastro-esophageal reflux disease without esophagitis; I10 Essential (primary) hypertension
CPT/HCPCS: 93005; 85025; 80048; 36415; 83735; 85610; 80076; 84484; 83880; 71045; 99285; J7030; 96361; 96374

== ENCOUNTER 2019-06-20 09:04 | Day surgery (SDC) | payer OTHER ==
--- NOTE | 2019-06-13 10:53 | RAD REPORT ---
EXAM DESCRIPTION: RAD - Chest Pa And Lat (2 Views) - 06/13/2019 10:18 am CLINICAL HISTORY: preop, pending left inguinal hernia repair COMPARISON: Portable September 2018 TECHNIQUE: Frontal and lateral views of the chest were obtained. FINDINGS: The lungs are clear. Slight elevation of the left hemidiaphragm noted matching comparison . Interstitial pattern matches comparison. Heart size is normal and central vasculature is within nor mal limits. No pleural effusion or pneumothorax seen. No acute bony finding noted. No aortic abnor mality. IMPRESSION: No acute cardiopulmonary process. No significant interval changes.
[2019-06-13 10:59] LABS: Absolute Lymphocytes (CBC) 2.9 K/uL (0.7-4.9); Basophils % 1.1 % (0-1.3); Hematocrit 39.8 % (39.6-49.0); Lymphocytes % 41.9 % (15.3-44.8); MPV 8.9 fL (7.6-11.3); RBC Red Blood Cell Count 4.34 M/uL (4.33-5.43)
--- NOTE | 2019-06-14 06:49 | EKG ---
Test Date: 2019-06-13 Test Time: 08:55:25 Systems Engineer: JORGE LUIS MEASUREMENT RESULTS: Intervals: Rate: 51 OK: 218 QRSD: 92 QT: 470 QTc: 433 [place]: P: 62 OK: 218 QRS: 64 T: 64 INTERPRETIVE STATEMENTS: Sinus bradycardia with 1st degree AV block Otherwise normal ECG Compared to ECG 10/07/2018 15:30:41 First degree AV block now present Atrial fibrillation no longer present Electronically Signed On 06-14-19 06:48:33 CDT by Baldev Almeida
[~2019-06-20 09:04] MED LIST: FENTANYL CITR 100 MCG/2 ML ONE; LIDOCAINE 2% MPF 5 ML VIAL ONE; MIDAZOLAM HCL 2 MG/2 ML INJ ONE; ROCURONIUM 50 MG/5 ML VIAL IV ONE; propofoL 200 MG/20 ML VIAL IV ONE
[2019-06-20] MEDS ORDERED: Ringers Lactate 1,000 ML IV ONE (09:14)
[2019-06-20] MEDS ORDERED: CEFAZOLIN/SWI 1gm 1 GM/10 ML SYR ONE (09:15)
--- OUTSIDE RECORDS SUMMARY | 2019-06-20 09:19 | XMS REPORT ---
:1955 Author Organization [facility] t Address [address] [place] [address] [address] [address] Care Team Providers Name Role Phone DR MARY Unavailable Unavailable Problems This patient has no known problems. Allergies, Adverse Reactions, Alerts This patient has no known allergies or adverse reactions. Medications This patient has no known medications. Encounters Start End Encounter Admission Attending Care Care Encounter Date/Time Date/Time Type Type Clinicians Facility Department ID 2017-10-22 2017-10-22 Outpatient JIMMY KUMAR [facility] [id number] 04:00:00 07:00:00 SU
[2019-06-20] MEDS ORDERED: propofoL 200 MG/20 ML VIAL IV ONE (10:37)
[2019-06-20] MEDS ORDERED: ROCURONIUM 50 MG/5 ML VIAL IV ONE (10:37)
[2019-06-20] MEDS ORDERED: MIDAZOLAM HCL 2 MG/2 ML INJ ONE (10:37)
[2019-06-20] MEDS ORDERED: LIDOCAINE 2% MPF 5 ML VIAL ONE (10:37)
[2019-06-20] MEDS ORDERED: EPHEDRINE SULF 50 MG/ML VIAL ONE (10:37)
[2019-06-20] MEDS ORDERED: FENTANYL CITR 100 MCG/2 ML ONE (10:37)
[2019-06-20] MEDS ORDERED: GLYCOPYRROLATE 0.2 MG/ML SYR ONE (10:39)
[2019-06-20] MEDS ORDERED: KETOROLAC 30 MG/ML INJ ONE (10:43)
[2019-06-20] MEDS ORDERED: ONDANSETRON 4 MG/2 ML VIAL ONE (10:44)
[2019-06-20] MEDS ORDERED: dexAMETHasone 4 MG/ML VIAL ONE (10:44)
[2019-06-20] MEDS: Ringers Lactate 1,000 ML IV ONE ×2 (11:13→11:19)
[2019-06-20] MEDS ORDERED: HYDROCODONE/APAP 7.5/325 MG TAB ONE (12:46)
[2019-06-20 15:03] VITALS: BP 117/68; TEMP 97.2; O2SAT 95
--- NOTE | 2019-06-20 21:48 | OP ---
Date of Procedure: 06/20/2019 Surgeon: Kali Sam MD Software Product Specialist: JAMI Lou Preoperative Diagnosis: Left inguinal hernia. Postoperative Diagnosis: Left inguinal hernia. Procedure: Repair of left inguinal hernia. Estimated Blood Loss: Minimal. Specimen: Hernia sac and contents. Findings: As above. Anesthesia: General. Complications: None. Disposition: Patient tolerated the procedure in stable condition, taken to Recovery in good general condition. Procedure In Detail: Patient was brought to the OR and placed in supine position. General anesthesi a was begun. Patient was prepped and draped in usual sterile fashion. Marcaine 0.5% was infiltrated locally. A #15 blade was used to make a 4 cm oblique incision in the left inguinal region. Subcuta neous tissue was divided. Alexandre fascia identified and divided. Aponeurosis identified, mobilized i nferiorly and opened through the external ring. Ilioinguinal nerve identified and retracted out of t he field of dissection. Then, cord mobilized at the pubic tubercle and skeletonized. A large indire ct hernia with sac and cord lipoma attached and was dissected free from the cord structures and follo w into the internal ring and then high ligation was done with 2-0 Prolene suture ligature and free hayward nd diet. The Marlex mesh plug was placed in the internal ring, secured with VersaTack stapler. Onla y mesh was placed on the inguinal floor, secured medially to the pubic tubercle, superior to the conj oined tendon, inferior to the shelving edge, laterally to each other. Cord structures and ilioinguin al nerve were placed back in anatomic location and 2-0 Prolene used to close the aponeurosis and 3-0 chromic used to reapproximate the Alexandre fascia. [place] were used to close the skin. Sterile dress ing was applied. Patient was awakened and taken to Recovery in good general condition. /MODL Voice ID: [id number] Report ID: [id number]
--- NOTE | 2019-06-20 21:50 | DS ---
Date of Discharge: 06/20/2019 Patient will go to Day Surgery and home when stable. Disposition: Home. Condition: Stable. Discharge Instructions: Resume home medications and diet. Activity as tolerated. No heavy lifting. Remove outer dressing in 2 days. Shower. Keep wound clean and dry. Scrotal support, ice pack as ordered. Follow up in my office in 1 week. Call for appointment. Tylenol No. 3 one tablet p.o. q.4 p.r.n. pain. /MODL Voice ID: [id number] Report ID: [id number]
== END 2019-06-20 14:30 | disposition home or self-care (01) ==
LOC: OR 09:04
PROVIDERS: ATTEND Surgery
PROC: 0YU60JZ Supplement Left Inguinal Region with Synthetic Substitute, Open Approach (ICD-10-PCS; principal; 2019-06-20 10:00)
DX: K40.90 Unilateral inguinal hernia, without obstruction or gangrene, not specified as recurrent (principal); Z11.59 Encounter for screening for other viral diseases; G47.33 Obstructive sleep apnea (adult) (pediatric); F51.9 Sleep disorder not due to a substance or known physiological condition, unspecified; I10 Essential (primary) hypertension; I48.91 Unspecified atrial fibrillation; K21.9 Gastro-esophageal reflux disease without esophagitis
CPT/HCPCS: 93005; 85025; 80048; 36415; 88302; 71046; 49505; J2704 ×2; J2250 ×2; J3010 ×2; J0690; J7120 ×2; J2405; U0002

== ENCOUNTER 2019-08-22 06:44 | Day surgery (SDC) | payer OTHER ==
--- NOTE | 2019-08-21 14:54 | RAD REPORT ---
EXAM DESCRIPTION: RAD - Chest Pa And Lat (2 Views) - 08/21/2019 2:31 pm CLINICAL HISTORY: pre op, pending cardioversion COMPARISON: Two view chest June 13, 2019 TECHNIQUE: Frontal and lateral views of the chest were obtained. FINDINGS: The lungs are clear. Interstitial pattern matches comparison. Heart size is normal and ce ntral vasculature is within normal limits. No pleural effusion or pneumothorax seen. No acute bony finding noted. No aortic abnormality. IMPRESSION: No acute cardiopulmonary process.
[2019-08-21 16:09] LABS: Potassium 4.1 mmol/L (3.5-5.1)
[2019-08-21 16:26] LABS: Protime INR 1.27
[2019-08-21 16:31] LABS: Absolute Lymphocytes (CBC) 2.7 K/uL (0.7-4.9); Hematocrit 43.1 % (39.6-49.0); Lymphocytes % 39.1 % (15.3-44.8); MPV 9.8 fL (7.6-11.3); RBC Red Blood Cell Count 4.73 M/uL (4.33-5.43)
[~2019-08-22 06:44] MED LIST changes: +ATROPINE SULF 1 MG/10 ML SYR IV ONE; -FENTANYL CITR 100 MCG/2 ML ONE; +FLUMAZENIL 0.1 MG/ML (5 mL VIAL) IV ONE; -LIDOCAINE 2% MPF 5 ML VIAL ONE; -MIDAZOLAM HCL 2 MG/2 ML INJ ONE; +MIDAZOLAM HCL 5 MG/5 ML INJ ONE; -ROCURONIUM 50 MG/5 ML VIAL IV ONE; -propofoL 200 MG/20 ML VIAL IV ONE
--- OUTSIDE RECORDS SUMMARY | 2019-08-22 06:47 | XMS REPORT | Continuity of Care Document ---
:1955 [address] [facility] t Address [address] [place] [address] Dr. Bustamante[address] [place] [id number] Care Team Providers Name Role Phone DR MARY Attending Clinician Unavailable DR MARY Admitting Clinician Unavailable Problems This patient has no known problems. Allergies, Adverse Reactions, Alerts This patient has no known allergies or adverse reactions. Medications This patient has no known medications. Procedures This patient has no known procedures. Encounters Start End Encounter Admission Attending Care Care Encounter Source Date/Time Date/Time Type Type Clinicians Facility Department ID 2017-10-22 2017-10-22 Outpatient JIMMY KUMAR [facility] [id number]00 [facility] Results This patient has no known results.
[2019-08-22] MEDS ORDERED: NA CHLORIDE 0.9% 500 ML ONE (07:00)
[2019-08-22] MEDS ORDERED: MIDAZOLAM HCL 5 MG/5 ML INJ ONE (07:23)
[2019-08-22] MEDS ORDERED: MIDAZOLAM HCL 2 MG/2 ML INJ ONE (07:40)
--- NOTE | 2019-08-22 07:52 | OP ---
Date of Procedure: 08/22/2019 Surgeon: Baldev Almeida MD Manager Lsw: Belkys Pak. The patient admitted as an outpatient to the pharmaceutical laboratory technician for a direct current cardioversion. The direct current cardioversion was done for atrial fibrillation. Patient is a 63-year-old white male, has had a history of paroxysmal atrial fibrillation, was control led on sotalol 80 b.i.d. that we had to go up to 160 b.i.d. after his last recurrent episode. He has been taking Xarelto. He also has a history of gastroesophageal reflux disease and mixed dyslipidemi a. Negative cardiac workup otherwise in the past. His atrial fibrillation is symptomatic. Procedure In Detail: Brought to the pharmaceutical laboratory technician today. Given 10 mg of Versed IV push for sedation. He had 1 shock with 200 joules and converted to sinus rhythm. There were no complications or blood los s. Postoperative Diagnosis: Atrial fibrillation, status post successful cardioversion to sinus rhythm. Patient will go home today when he wakes up. He will continue his medication including sotalol 160 b .i.d. and Xarelto. Anesthesia: Total conscious sedation was 30 minutes. DOMINIC/DUSTIN Voice ID: [id number] Report ID: [id number]
[2019-08-22 07:58] VITALS: TEMP 97.4
[2019-08-22 08:48] VITALS: BP 113/63; O2SAT 96
== END 2019-08-22 09:07 | disposition home or self-care (01) ==
LOC: CCL 06:44
DX: I48.0 Paroxysmal atrial fibrillation (principal); Z11.59 Encounter for screening for other viral diseases; I10 Essential (primary) hypertension; I25.10 Atherosclerotic heart disease of native coronary artery without angina pectoris; E78.2 Mixed hyperlipidemia; K21.9 Gastro-esophageal reflux disease without esophagitis; F41.9 Anxiety disorder, unspecified; Z79.01 Long term (current) use of anticoagulants
CPT/HCPCS: 93005; 85025; 80048; 36415; 85610; 85730; 71046; 92960; U0002; J2250 ×2; J7040

== ENCOUNTER 2020-05-23 08:02 | Day surgery (SDC) | payer OTHER ==
--- NOTE | 2020-05-22 14:31 | RAD REPORT ---
EXAM DESCRIPTION: RAD - Chest Pa And Lat (2 Views) - 05/22/2020 2:18 pm CLINICAL HISTORY: preop, pending cholecystectomy COMPARISON: August 2019 TECHNIQUE: Frontal and lateral views of the chest were obtained. FINDINGS: The lungs are clear. Lung parenchymal pattern matches comparison. Heart size is normal an d central vasculature is within normal limits. No pleural effusion or pneumothorax seen. No acute b alaina finding noted. No aortic abnormality. IMPRESSION: No acute cardiopulmonary process. No significant change from comparison study.
[2020-05-22 14:45] LABS: Albumin 3.7 g/dL (3.4-5.0); Bilirubin Direct 0.1 mg/dL (0-0.2); Bilirubin Total 0.4 mg/dL (0.2-1.0); Protein, Total 7.1 g/dL (6.4-8.2)
[2020-05-23] MEDS ORDERED: CEFOXITIN/SWI 1gm 1 GM/10 ML SYR ONE (08:34)
[2020-05-23] MEDS ORDERED: Ringers Lactate 1,000 ML IV ONE ×2 (08:34→10:04)
[2020-05-23] MEDS ORDERED: dexAMETHasone 10 MG/ML VIAL ONE (08:41)
[2020-05-23] MEDS ORDERED: ONDANSETRON 4 MG/2 ML VIAL ONE ×2 (08:41→10:45)
[2020-05-23] MEDS ORDERED: propofoL 200 MG/20 ML VIAL IV ONE (08:41)
[2020-05-23] MEDS ORDERED: ROCURONIUM 50 MG/5 ML VIAL IV ONE (08:41)
[2020-05-23] MEDS ORDERED: KETOROLAC 30 MG/ML INJ ONE (08:41)
[2020-05-23] MEDS ORDERED: MIDAZOLAM HCL 2 MG/2 ML INJ ONE (08:41)
[2020-05-23] MEDS ORDERED: LIDOCAINE 1% MPF 30 ML VIAL ONE (08:41)
[2020-05-23] MEDS ORDERED: METHYLPREDNISOLONE 125 MG INJ ONE (08:41)
[2020-05-23] MEDS ORDERED: FENTANYL CITR 100 MCG/2 ML ONE (08:41)
[2020-05-23] MEDS ORDERED: NEOSTIGMINE 1 MG/ML -5 ML ONE (10:13)
[2020-05-23] MEDS ORDERED: GLYCOPYRROLATE 0.2 MG/ML SYR ONE (10:13)
[2020-05-23] MEDS: HYDROMORPHONE HCL 1 MG/ML INJ ONE ×2 (10:30→10:35)
[2020-05-23] MEDS ORDERED: HYDROCODONE/APAP 7.5/325 MG TAB ONE (11:30)
--- NOTE | 2020-05-23 12:16 | OP ---
Date of Procedure: 05/23/2020 Surgeon: Kali Sam MD Hand Model: JAMI Cooper. Preoperative Diagnosis: Chronic cholecystitis and cholelithiasis. Postoperative Diagnosis: Chronic cholecystitis and cholelithiasis. Procedure: Laparoscopic cholecystectomy. Estimated Blood Loss: Minimal. Specimen: Gallbladder. Finding: As above. Anesthesia: General. Complications: None. Disposition: The patient tolerated the procedure in stable condition and taken to Recovery in good g eneral condition. Procedure In Detail: The patient was brought to the OR and placed in supine position. General anest hesia begun. The patient was prepped and draped in usual sterile fashion. Marcaine 0.5% was infiltr ated locally. A 15-blade was used to make a 1 cm supraumbilical midline incision. Subcutaneous tiss ue divided. Fascia was identified and divided. A #1 Vicryl stay suture was placed. Peritoneal cavi ty was entered with sharp and blunt dissection. A 12 mm trocar was placed into the peritoneal cavity under direct vision. Pneumoperitoneum was established and then three 5 mm trocars were placed, 1 in the epigastrium just to the right of midline and 2 in the right subcostal region. Laparoscopy revea led chronic inflammation of the gallbladder. Fundus retracted superiorly. Infundibulum was identifi ed and retracted inferolaterally, and blunt dissection was utilized to identify the cystic duct and c ystic artery. Clips were placed. Both structures were divided. Cautery was used to remove the gall bladder from the liver bed. Bleeding on the liver bed was controlled with cautery. Gallbladder was retrieved through the umbilicus via an EndoCatch bag. Right upper quadrant was examined and no evide nce of bleeding or bile leakage appreciated. Subsequently, all trocars were removed under direct vis ion. Stay sutures were tied to each other to approximate the fascial defect. Subcutaneous wounds we re irrigated. Bleeding was controlled with cautery. A 3-0 chromic was used to approximate the subcu taneous tissue and close the skin. Sterile dressing was applied. The patient was awakened and taken to Recovery in good general condition. Discharge Note: The patient will go to Day Surgery and home when stable. Disposition: Home. Condition: Stable. Discharge Instructions: Resume home medications and diet. Activity as tolerated. No heavy lifting. Remove outer dressing in 2 days. Shower. Keep wound clean and dry. Keep Steri-Strips on at all t imes. Incentive spirometry as ordered. Tylenol No. 3 one tablet p.o. q.4 p.r.n. pain. Follow up in my office in a week. Call for appointment. ZAKIYA/DUSTIN Voice ID: [id number] Report ID: [id number]
[2020-05-23 12:29] VITALS: BP 117/70; TEMP 97.3; O2SAT 93
== END 2020-05-23 12:15 | disposition home health service (06) ==
LOC: OR 08:02
PROVIDERS: ATTEND Surgery
PROC: 0FT44ZZ Resection of Gallbladder, Percutaneous Endoscopic Approach (ICD-10-PCS; principal; 2020-05-23 09:00)
DX: K80.10 Calculus of gallbladder with chronic cholecystitis without obstruction (principal); Z20.822 Contact with and (suspected) exposure to COVID-19
CPT/HCPCS: 36415; 82150; 80076; 88302; 88304; 71046; 47562; U0003; J2704; J2250; J3010; J1100; J1170; J2710; J7120; J2930; J2405 ×2

== ENCOUNTER 2024-04-02 11:37 | Emergency (ER) | payer OTHER ==
--- OUTSIDE RECORDS SUMMARY | 2024-04-02 11:40 | XMS REPORT | Continuity of Care Document ---
Author Name Unknown Address [address] [place] [address] [facility] thconnect Address [address] [place] [address] Care Team Providers Care Cloth Drier Name Role Phone Zachary Archer Primary Care Physician [phone] TYLER PATEL Attending Clinician Unavailable Therapy, [facility] Attending Clinician Unavailable Tyler Patel MD Attending Clinician [phone] Doctor Unassigned, [place] Attending Clinician U DR SU Erickson Attending Clinician Unavailable DR SU HERNANDEZ Admitting Clinician Unavailable Payers Payer Name Policy Type Policy Number Effective Date Expirati on Date Source MEDICARE PART A \T\ B [id number] 2018 00:00:00 [employer] [id number] 2018 00:00:00 Allergies, Adverse Reactions, Alerts Allergy Name Allergy Type Status Severity Reaction(s) Onset Date Inactive Date Treating Clinician Comments Source NO KNOWN ALLERGIE S Drug Class Active [facility] Social History Social Habit Start Date Stop Date Quantity Comments Source Sex Assigned At 1955 00:00:00 1955 00:00:00 [facility] Smoking Status Start Date Stop Date Source Unknown if ever smoked [facility] Medications Ordered Medication Name Filled Medication Name Start Date Stop Date Current Medication? Ordering Clinician Indication Dosage Frequency Signature (SIG) Comments Components Source casirivimab -imdevimab (REGEN-COV (EUA)) injection 1,200 mg 11-02 17:30: 00 11-02 16:16 :00 No [id number] 1200mg 1,200 mg, Subcutaneo us, ONCE, 1 dose, On 11/02/20 at 1230, Routine [facility] Vital Signs Vital Name Observation Time Observation Value Shana fernandez Systolic blood pressure 2020-11-02 17:01:00 122 mm[Hg] [facility] acute hospital Diastolic blood pressure 2020-11-02 17:01:00 69 mm[Hg] General acute hospital Heart rate 2020-11-02 17:01:00 78 /min [facility] Body temperature 2020-11-02 17:01:00 37.22 Joycelyn [facility] Respiratory rate 2020-11-02 17:01:00 21 /min [facility] Oxygen saturation in Arterial blood by Pulse oximetry 2020-11-02 17:01:00 95 /min [facility] acute hospital Body height 2020-11-02 16:15:00 193 cm [facility] Body weight 2020-11-02 16:15:00 99.791 kg [facility] BMI 2020-11-02 16:15:00 26.78 kg/m2 [facility] Procedures Procedure Date / Time Performed Performing Clinicia n Source [id number] CONSENT 2020-11-02 05:01:00 Doctor Unas signed, [place] [facility] Encounters Start Date/Time End Date/Time Encounter Type Admission Type Attending Clinicians Care Facility Care Department Encounter ID Source 2020-11-02 11:00:00 2020-11-02 11:00:00 Outpatient TYLER BERGER [facility] [id number] [facility] 2020-11-02 08:01:19 2020-11-02 09:01:19 Nurse Visit Therapy, [facility] Tyler Patel [facility] [id number] [facility] 2020-11-02 00:00:00 2020-11-02 00:00:00 Orders Only Doctor Unassigned, [place] [facility] [id number] [facility] 2017-10-22 04:00:00 2017-10-22 07:00:00 Outpatient SU KUMAR [facility] [id number] [facility]
[2024-04-02 13:33] LABS: Specific Gravity 1.012 (1.005-1.030); Sqamous Epithelial None Seen /HPF (None Seen); Urine Bacteria None Seen /HPF (<20); Urine Bilirubin NEGATIVE (Negative); Urine Blood Negative (Negative); Urine Clarity Clear (Clear); Urine Color Light-Yellow (Yellow); Urine Crystals Unidentified Few /HPF (None Seen); Urine Culture Reflex Order NOT NEEDED; Urine Glucose NEGATIVE (Negative); Urine Ketones NEGATIVE (Negative); Urine Micro Reflex YN NO BILL MICROSCOPIC; Urine Nitrite NEGATIVE (Negative); Urine Protein NEGATIVE (Negative); Urine RBC <5 /HPF (None Seen); Urine Urobilinogen Normal (Normal); Urine WBC <5 /HPF (<5); Urine pH 6.5 (5.0-7.0)
--- NOTE | 2024-04-02 13:48 | ER ---
Nurse's Notes [facility] Name: Matt Robles Age: 68 yrs Sex: Male : 1955 Arrival Date: 04/02/2024 Time: 11:37 Bed 6 Private MD: Diagnosis: Retention of urine, unspecified Presentation: 04/02 13:10 Chief complaint: Patient states: unable to completely empty bladder since Wednesday. Had hb abd US that showed urinary retention. Had TURP >10 years ago. pain 4/10 pressure. Coronavirus screen: Vaccine status: Patient reports receiving the 2nd dose of the covid vaccine. Ebola Screen: No symptoms or risks identified at this time. Initial Sepsis Screen: Does the patient meet any 2 criteria? No. Patient's initial sepsis screen is negative. Does the patient have a suspected source of infection? No. Patient's initial sepsis screen is negative. Risk Assessment: Do you want to hurt yourself or someone else? Patient reports no desire to harm self or others. Onset of symptoms was March 31, 2024. 13:10 Method Of Arrival: Ambulatory hb 13:10 Acuity: ESSENCE 3 hb Triage Assessment: 13:13 General: Appears uncomfortable, Behavior is calm, cooperative, appropriate for age. hb Pain: Complains of pain in suprapubic area Pain does not radiate. Pain currently is 4 out of 10 on a pain scale. Quality of pain is described as pressure, Pain began 2-3 days ago. Is continuous. Neuro: Level of Consciousness is awake, alert, obeys commands, Oriented to person, place, time, situation, Appropriate for age. Cardiovascular: Patient's skin is warm and dry. Respiratory: Airway Respiratory effort is even, unlabored, Respiratory pattern is regular, symmetrical. : Reports inability to void, pain. Derm: Skin is intact, is healthy with good turgor, Skin is pink, warm \T\ dry. Musculoskeletal: No signs and/or symptoms reported regarding the musculoskeletal system. Historical: - Allergies: 13:12 No Known Allergies; hb - PMHx: 13:12 Atrial Fib; GERD; Hernia; Hypertension; hb - PSHx: 13:12 TURP (Unknown); cardioversion (Unknown); hb - Immunization history:: Adult Immunizations up to date. - Infectious Disease History:: Denies. - Social history:: Smoking status: Patient denies any tobacco usage or history of. Screenin:[facility] ED Fall Risk Assessment (Adult) History of falling in the last 3 months, bp including since admission No falls in past 3 months (0 pts) Confusion or Disorientation No (0 pts) Intoxicated or Sedated No (0 pts) Impaired Gait No (0 pts) Mobility Assist Device Used No (0 pt) Altered Elimination No (0 pt) Score/Fall Risk Level 0 - 2 = Low Risk Oriented to surroundings. Abuse screen: Denies threats or abuse. Denies injuries from another. Nutritional screening: No deficits noted. Tuberculosis screening: No symptoms or risk factors identified. Assessment: 13:15 General: Appears in no apparent distress. uncomfortable, Behavior is calm, cooperative, bp appropriate for age. Vital Signs: 13:10 BP 135 / 85; Pulse 66; Resp 16; Temp 98; Weight 97.52 kg; Height 6 ft. 4 in. ; Pain hb 4/10; 14:33 BP 127 / 79; Pulse 71; Resp 16; Pulse Ox 99% ; bp 13:10 Body Mass Index 26.17 (97.52 kg, 193.04 cm) hb 13:10 Pain Scale: Adult hb ED Course: 11:40 Patient arrived in ED. al6 11:44 Vincent Sidhu MD is Attending Physician. ec2 12:59 Markus Miguel, RN is Primary Nurse. bp 13:12 Triage completed. hb 13:12 Arm band placed on Patient placed in an exam room. hb 13:15 Patient has correct armband on for positive identification. bp 13:15 No provider procedures requiring assistance completed. Patient did not have IV access bp during this emergency room visit. 13:19 Fuentes cath inserted, using sterile technique, 16 Fr., by dc, balloon inflated, to bp gravity drainage, urine specimen collected. returned clear yellow urine. Patient tolerated well. 13:48 Prieto Wen MD is Referral Physician. ec2 14:33 Provided Education on: na. bp Administered Medications: No medications were administered Medication: 14:33 VIS not applicable for this client. bp Outcome: 13:48 Discharge ordered by . ec2 14:32 Discharged to home ambulatory, with family, bp 14:32 Condition: stable 14:32 Discharge instructions given to patient, Instructed on discharge instructions, follow up and referral plans. Demonstrated understanding of instructions, follow-up care, 14:42 Patient left the ED. bp Signatures: Gloria Shepherd RN RN Markus Kumar RN RN bp Vincent Sidhu MD MD ec2 Antonieta Summers al6
--- NOTE | 2024-04-02 13:48 | EDPHYS ---
Physician Documentation [facility] Name: Matt Robles Age: 68 yrs Sex: Male : 1955 Arrival Date: 04/02/2024 Time: 11:37 Bed 6 Private MD: ED Physician Vincent Sidhu HPI: 04/02 12:11 This 68 yrs old Male presents to ER via Unassigned with complaints of Urinary ec2 Problem. 12:11 Patient arrives today for decreased urinary frequency. Patient reports history of ec2 prostatic issues, reports he has been having decreased urinary frequency, has had previous Fuentes catheter is in place. Patient reports no fevers, no nausea or vomiting, no discoloration of the urine.. Historical: - Allergies: 13:12 No Known Allergies; hb - PMHx: 13:12 Atrial Fib; GERD; Hernia; Hypertension; hb - PSHx: 13:12 TURP (Unknown); cardioversion (Unknown); hb - Immunization history:: Adult Immunizations up to date. - Infectious Disease History:: Denies. - Social history:: Smoking status: Patient denies any tobacco usage or history of. ROS: 12:11 Constitutional: as per hpi ec2 Exam: 12:11 Constitutional: GEN: NAD Head: atraumatic Eyes: EOMI Ears: External ears are ec2 normal. CV: regular rate LUNGS: no respiratory distress ABD: non-distended SKIN: no evidence of rashes MSK: no evidence of trauma Vital Signs: 13:10 BP 135 / 85; Pulse 66; Resp 16; Temp 98; Weight 97.52 kg; Height 6 ft. 4 in. ; Pain hb 4/10; 14:33 BP 127 / 79; Pulse 71; Resp 16; Pulse Ox 99% ; bp 13:10 Body Mass Index 26.17 (97.52 kg, 193.04 cm) hb 13:10 Pain Scale: Adult hb MDM: 12:04 Medical Screening Exam initiated ec2 12:11 Data reviewed: vital signs, nurses notes. ED course: Patient arrives today for ec2 evaluation of urinary complaints. Examination is unrevealing. Will place Fuentes catheter, send UA and have patient follow-up with urology for urinary retention.. 13:48 ED course: Urine noninfectious. Fuentes placed without issue. Will discharge home. Have ec2 the patient follow-up with urology.. 04/02 12:11 Order name: UAM; Complete Time: 13:47 ec2 04/02 12:11 Order name: Fuentes; Complete Time: 13:19 ec2 04/02 12:11 Order name: Fuentes Leg Bag; Complete Time: 14:31 ec2 Administered Medications: No medications were administered Disposition Summary: 04/02/24 13:48 Discharge Ordered Notes: Location: Home ec2 Condition: Stable ec2 Diagnosis - Retention of urine, unspecified ec2 Followup: ec2 - With: Prieto Wen MD - When: - Reason: Recheck today's complaints Discharge Instructions: - Discharge Summary Sheet ec2 - Acute Urinary Retention, Male ec2 Forms: - Medication Reconciliation Form ec2 - Antibiotic Education ec2 - Prescription Opioid Use ec2 - Patient Portal Instructions ec2 - Leadership Thank You Letter ec2 Signatures: Dispatcher [employer] Gloria Chowdhury RN RN Vincent Sidhu MD MD ec2
[2024-04-02 14:50] VITALS: TEMP 98
[2024-04-02 14:51] VITALS: BP 127/79; O2SAT 99
== END 2024-04-02 14:42 | disposition home or self-care (01) ==
LOC: ER 11:37
DX: R33.9 Retention of urine, unspecified (principal)
CPT/HCPCS: 51702; 81001; 99284